=== PATIENT | female | born 1945 | race Caucasian/White ===

== ENCOUNTER 2020-07-01 06:57 | Outpatient (NON) | payer MEDICARE, SELFPAY ==
[2020-07-01 17:37] LABS: SARS-CoV-2 RNA PCR Negative
== END 2020-07-01 06:58 ==
PROVIDERS: PCP Emergency Medicine; Visit Provider Emergency Medicine
DX: R50.9 Fever, unspecified (principal); Z20.828 Contact with and (suspected) exposure to other viral communicable diseases
CPT/HCPCS: 87635; C9803; U0003

== ENCOUNTER 2020-10-11 15:38 | Outpatient (CLI) | payer MEDICARE, SELFPAY ==
--- NOTE | ~2020-10-11 | US_ITS ---
EXAMINATION: US venous doppler LE DATE: 10/11/2020 16:07 INDICATION: Right lower limb pain TECHNIQUE: Grayscale ultrasound images without and with compression and Doppler ultrasound images of the right lower extremity veins were obtained. COMPARISON: None. FINDINGS: The visualized portions of right common femoral vein, profunda (deep) femoral vein, femoral vein, pop liteal vein, peroneal trunk, posterior tibial veins, peroneal veins, gastrocnemius vein and greater s aphenous vein outflow are patent. IMPRESSION: 1. No deep venous thrombosis in the right lower limb. Reviewed, dictated and finalized at location B. 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
== END 2020-10-11 15:39 | disposition home or self-care (01) ==
LOC: ANHIMG 15:46
PROVIDERS: Family Provider Emergency Medicine; PCP Emergency Medicine; Visit Provider Emergency Medicine
DX: M79.604 Pain in right leg (principal)
CPT/HCPCS: 93971

== ENCOUNTER 2020-12-21 08:29 | Emergency (ER) | payer OTHER, MEDICARE, SELFPAY ==
--- NOTE | ~2020-12-21 | XR_ITS ---
EXAMINATION: XR ankle LT min 3V EXAM DATE: 12/21/2020 08:59 INDICATION: Initial encounter following injury, with pain of the left ankle. TECHNIQUE: Left ankle frontal, lateral and oblique projections obtained and reviewed. There is no pr ior study for comparison. FINDINGS: The left ankle mortise appears intact. There are no acute fractures or dislocations ident ified. There is no subcutaneous gas. There is an ankle joint effusion. There is swelling of the api claudia anterolaterally. There are no radiopaque foreign bodies. There is small inferior calcaneal spur . IMPRESSION: 1. Left ankle exam without acute osseous findings. 2. Ankle joint effusion. 3. Soft tissue swelling. Reviewed, dictated and finalized at location A.
[2020-12-21 08:38] VITALS: BP 150/77; PULSE 76; RESP 16; TEMP 36.9; O2SAT 100
--- NOTE | 2020-12-21 08:45 | ED.LOWEXIN ---
HPI - Extremity Injury (Lower) General Chief Complaint: Extremity Injury, Lower Stated Complaint: Left Ankle Injury Time Seen by Provider: 12/21/20 08:37 Source: patient Mode of arrival: ambulatory Limitations: no limitations History of Present Illness HPI Narrative: Patient is a 75-year-old female who presents for evaluation of left ankle pain and injury. 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 Pain was initially sharp but then became throbbing in nature throughout the day. Has had some associated bruising and swelling on the side of the left ankle. Patient does have a history of fracture in this foot several years ago. She denies any surgical intervention for that fracture. Patient denies any fall or head injury. No other extremity injury. She denies knee pain or hip pain. No numbness or tingling. Related Data Home Medications Medication Instructions Recorded Confirmed cholecalciferol (vitamin D3) 1,250 See Rx Instructions .ROUTE .COMPLEX 03/07/20 08/30/20 mcg (50,000 unit) capsule icosapent ethyl 1 gram capsule See Rx Instructions .ROUTE .COMPLEX 03/07/20 08/30/20 simvastatin 10 mg tablet See Rx Instructions .ROUTE .COMPLEX 03/07/20 08/30/20 Allergies Allergy/AdvReac Type Severity Reaction Status Date / Time No Known Allergies Allergy Verified 12/21/20 08:35 Review of Systems Review of Systems: Narrative: CONSTITUTIONAL: Denies fever CARDIOVASCULAR: Denies chest pain RESPIRATORY: Denies cough or dyspnea. GASTROINTESTINAL: Denies abdominal pain SKIN: Denies rash MUSCULOSKELETAL: Denies back pain, reports left ankle pain NEUROLOGIC: Denies headache [facility] Past Medical History Medical History (Updated 12/21/20 @ 09:18 by Sharri Purvis MD) Diabetes mellitus HLD (hyperlipidemia) Hypothyroidism (acquired) Leg pain Other screening mammogram Post-menopausal Right calf pain Vitamin D deficiency disease Family History Family History Sibling Family history of malignant neoplasm of breast in first degree relative Diabetes mellitus Family history of malignant neoplasm of breast Family history of muscular dystrophy Mother Family history of malignant neoplasm, Onset Age: 70 Father Family history of malignant neoplasm of brain Social History Social History Smoking status: Former smoker Smoking end date: 09/15/12 Alcohol intake: current Exam Narrative: Exam Narrative: GENERAL: Awake, alert, conversant HEAD: Normocephalic, atraumatic. EYES: PERRLA and EOMI. ENT: Nares clear, no rhinorrhea or epistaxis. Mucous membranes moist. NECK: Supple. CHEST: No respiratory distress, breathing even and non labored HEART: Regular rate, sinus rhythm ABDOMEN:Non distended, non tender EXTREMITIES: Normal range of motion. Mild edema and ecchymosis to the lateral aspect of the left ankle with tenderness to palpation over the lateral malleolus. No medial malleolus tenderness. DP pulse 2+. Posterior tibialis pulse 2+. Intact distal sensation. Full flexion extension that is somewhat limited due to pain. SKIN: Warm, dry, no rash. NEURO:No focal deficits. Alert and oriented x3 Course Vital Signs Vital signs: Vital Signs Temperature 36.9 C 12/21/20 08:38 Pulse Rate 76 12/21/20 08:38 Respiratory Rate 16 12/21/20 08:38 Blood Pressure 150/77 H 12/21/20 08:38 Pulse Oximetry 100 12/21/20 08:38 Temperature 36.9 C 12/21/20 08:38 Pulse Rate 76 12/21/20 08:38 Respiratory Rate 16 12/21/20 08:38 Blood Pressure 150/77 H 12/21/20 08:38 Pulse Oximetry 100 12/21/20 08:38 MDM - Extremity Injury (Lower) MDM Narrative Medical decision making narrative: Patient is a 75-year-old female who presented for evaluation of left ankle pain after she twisted and fe
--- NOTE | 2020-12-21 09:29 | PC.NURSE ---
pt did not want crutches. aware
[2020-12-21 09:30] VITALS: BP 143/75; PULSE 70; RESP 16; O2SAT 100
== END 2020-12-21 09:34 | disposition home or self-care (01) ==
PROVIDERS: Emergency Provider Emergency Medicine; PCP Emergency Medicine
DX: S93.402A Sprain of unspecified ligament of left ankle, initial encounter (principal); S96.912A Strain of unspecified muscle and tendon at ankle and foot level, left foot, initial encounter; E11.9 Type 2 diabetes mellitus without complications; E78.5 Hyperlipidemia, unspecified; E03.9 Hypothyroidism, unspecified; E55.9 Vitamin D deficiency, unspecified; Z79.84 Long term (current) use of oral hypoglycemic drugs; Z87.891 Personal history of nicotine dependence; X50.9XXA Other and unspecified overexertion or strenuous movements or postures, initial encounter
CPT/HCPCS: 73610; 99283

== ENCOUNTER 2021-08-13 13:46 | Outpatient (CLI) | payer MEDICARE, SELFPAY ==
--- NOTE | ~2021-08-13 | XR_ITS ---
EXAMINATION: XR hip LT min 2V DATE: 08/13/2021 14:09 INDICATION: Left hip pain. TECHNIQUE: 2 views of left hip were obtained. COMPARISON: None. FINDINGS: Bone alignment is normal. No fracture. There is mild left hip osteoarthritis. There are olesya gical clips overlying the pelvis. IMPRESSION: 1. Mild left hip osteoarthritis. Reviewed, dictated and finalized at location A. 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
== END 2021-08-13 13:47 | disposition home or self-care (01) ==
LOC: ANHIMG 13:48
PROVIDERS: PCP Emergency Medicine; Visit Provider Emergency Medicine
DX: M16.12 Unilateral primary osteoarthritis, left hip (principal)
CPT/HCPCS: 73502

== ENCOUNTER 2021-12-22 17:16 | Observation (INO) | payer MEDICARE, SELFPAY ==
[2021-12-22] VITALS (17 sets, daily range): BP systolic 128–151; BP diastolic 68–77; PULSE 71–99; RESP 12–27; TEMP 36.3–36.4; O2SAT 96–98; BMI 25.9
--- NOTE | ~2021-12-22 | NM_ITS ---
EXAMINATION: NM my stress w perfusion DATE: 12/24/2021 11:48 INDICATION: Chest pain. TECHNIQUE: Rest images were obtained following intravenous administration of 10.6 mCi Tc99m tetrofosm in (Myoview). The patient was infused intravenously with Lexiscan (regadenoson). Then, 30.0 mCi Tc99m tetrofosmin (Myoview) was administered intravenously, and supine and prone stress images were obtain ed. Data was reconstructed into short axis and horizontal and vertical long axis SPECT images. Gated SPECT images were also obtained. COMPARISON: Chest CT 12/22/2021 FINDINGS: There is no definite reversible or fixed perfusion abnormality to suggest ischemia or infar ction. There is no segmental wall motion abnormality. Left ventricular ejection fraction measures 6 7%. IMPRESSION: 1. No definite ischemia or infarct. 2. Normal left ventricular ejection fraction measuring 67%. Reviewed, dictated and finalized at location A.
--- NOTE | ~2021-12-22 | XR_ITS ---
EXAMINATION: XR chest 1V portable Exam Date/Time: 12/22/2021 17:35 CDT CLINICAL HISTORY: COUGH, WEAK, CHEST PRESSURE, DIABETIC, HX RT BREAST CANCER Comparison: 05/03/2018. RESULT: Lines, tubes, and devices: None. Lungs and pleura: Clear. Cardiomediastinal silhouette: Stable cardiomediastinal silhouette. Other: No acute osseous or upper abdominal finding. IMPRESSION: No acute cardiopulmonary process. Reviewed, dictated and finalized at location K.
--- NOTE | ~2021-12-22 | CT_ITS ---
EXAMINATION: CTA chest PE protocol DATE: 12/22/2021 19:11 INDICATION: dyspnea TECHNIQUE: Computed tomography angiography (CTA) of the chest was performed with 100 mL Omnipaque-350 intravenous contrast timed to evaluate the pulmonary arteries. Coronal maximum intensity projection 3D-reconstructions were created by the technologist. The dose-length product (DLP) was 267.93 mGy-cm. Automated exposure control and iterative reconstruction technique were employed. COMPARISON: X-ray chest, same date. CT thorax 05/26/2014. FINDINGS: Study quality: Adequate. Pulmonary arteries: No pulmonary emboli detected. Thoracic aorta: Mild atherosclerotic calcification. Lung parenchyma and airways: Mosaic attenuation. Granulomatous nodules. Stable mild right anterior lorrie ng fibrosis. Thoracic inlet, axillae and chest wall: Unremarkable. Mediastinum: Coarse right thyroid lobe calcification. Dystrophic calcifications in the left breast. 9 mm AP window node. Calcified right hilar lymph node. Heart and pericardium: Mild cardiomegaly. Coronary artery calcifications: Moderate. Pleura: Unremarkable. Upper abdomen: Granulomatous calcifications in the liver and spleen.. Bones: No acute osseous finding. IMPRESSION: No pulmonary embolus detected. Reviewed, dictated and finalized at location K.
--- NOTE | 2021-12-22 17:30 | ECG_ITS ---
Measurements Intervals Herman Rate: 88 P: 58 MS: 152 QRS: 0 QRSD: 89 T: 40 QT: 335 QTc: 405 Interpretive Statements SINUS RHYTHM NO PREVIOUS ECG AVAILABLE FOR COMPARISON Electronically Signed On 12-23-2021 6:55:16 CDT by Zhanna Valencia M.D.
--- NOTE | 2021-12-22 17:35 | ED.SOB ---
HPI - SOB/Dyspnea General Chief Complaint: Shortness of Breath/Dyspnea Stated Complaint: diff breathing Time Seen by Provider: 12/22/21 17:16 Source: RN notes reviewed History of Present Illness HPI Narrative: Patient presents emergency room from home for shortness of breath and chest tightness. Patient states that over the past week she has been feeling more fatigued she states whenever she does any activity she gets a tightness in her chest that is worse with activity and then resolves when she rests she states that with that she also feels short of breath she feels like she almost needs to get something up out of her chest with a tightness but is unable to do so states she has had a cough that has been productive of some clear sputum she denies any fevers or chills abdominal pain nausea vomiting she does states she has had some intermittent diarrhea patient was at work this evening and was working when she got the chest tightness went to her boss recommended she come to the ER she states the chest tightness has resolved at this time. 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[place] as well as at [employer] Medications Medication Instructions Recorded Confirmed cholecalciferol (vitamin D3) 1,250 See Rx Instructions .ROUTE .COMPLEX 03/07/20 08/29/21 mcg (50,000 unit) capsule Allergies Allergy/AdvReac Type Severity Reaction Status Date / Time No Known Allergies Allergy Verified 12/22/21 17:50 Review of Systems Review of Systems: Gen.: Denies fevers or chills Eyes: Denies eye pain or visual change ENT: Denies congestion Respiratory: See HPI CV: Denies chest pain or palpitations GI: Denies abdominal pain nausea, emesis reports diarrhea denies burning, urgency, frequency or hematuria Musculoskeletal: Denies back pain or muscle pain Neuro: Denies numbness, tingling, ports weakness Skin: Denies rash Except as documented, all other systems reviewed and negative [facility] Past Medical History Medical History Diabetes mellitus HLD (hyperlipidemia) Hypothyroidism (acquired) Leg pain Other screening mammogram Post-menopausal Right calf pain Vitamin D deficiency disease Family History Family History Sibling Family history of malignant neoplasm of breast in first degree relative Diabetes mellitus Family history of malignant neoplasm of breast Family history of muscular dystrophy Mother Family history of malignant neoplasm, Onset Age: 70 Father Family history of malignant neoplasm of brain Social History Social History Social History: Patient drinks 2 cups of caffeine daily. She exercises a couple of times per week. 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 CARDIOVASCULAR: Regular rate and rhythm without murmurs rubs or gallops. ABDOMINAL: Soft, nontender, nondistended, no rebound or guarding MUSCULOSKELETAl: Moves all extremities. No clubbing, cyanosis or edema. NEURO: Awake and alert. Following commands, speech normal, no focal deficits SKIN:: Warm, dry. No rashes lesions or abrasions PSYCHIATRIC: Normal affect/mood, Course Course Emergency Course: D
[2021-12-22 17:44] LABS: Basophils Absolute Auto 0.1 K/mm3 (0.0-0.1); Basophils Percent Auto 0.8 % (0.2-1.2); Eosinophils Absolute Auto 0.3 K/mm3 (0-0.3); Eosinophils Percent Auto 3.8 % (0-4.4); Hemoglobin 13.8 g/dL (12.0-15.0); Immature Granulocyte Absolute 0.03 K/mm3 (0.00-0.031); Immature Granulocyte Percent A 0.5 % (0-0.5); Lymphocytes Absolute Auto 1.74 K/mm3 (0.9-3.2); Lymphocytes Percent Auto 26.4 % (18.3-44.2); Mean Corpuscular HGB Conc 32.1 g/dl (32-36); Mean Corpuscular Hemoglobin 29.1 pg (26-34); Mean Corpuscular Volume 90.7 fl (80-100); Mean Platelet Volume 9.5 fl (7.4-10.4); Monocytes Absolute Auto 0.7 K/mm3 (0.1-0.6); Monocytes Percent Auto 11.1 % (2.6-8.5); Neutrophils Absolute Auto 3.8 K/mm3 (1.3-6.7); Neutrophils Percent Auto 57.4 % (45.5-73.1); Platelet Count Result 396 k/mm3 (150-375); Red Blood Count 4.74 M/mm3 (4.2-5.4); Red Cell Distribution Width 12.2 % (11.5-14.5); White Blood Count 6.6 K/mm3 (4.5-10.0)
[2021-12-22 17:55] LABS: Prothrombin Time 13.1 Seconds (11.1-14.7)
[2021-12-22 17:58] LABS: Alanine Aminotransferase 16 U/L (4-35); Albumin Level 4.5 g/dL (3.5-5.1); Alkaline Phosphatase 125 U/L (38-126); Anion Gap 9 mmol/L (8-16); Aspartate Amino Transferase 27 U/L (14-36); Bilirubin,Total 0.5 mg/dL (0.2-1.3); Blood Urea Nitrogen 17 mg/dL (7-17); Calcium 10.9 mg/dL (8.4-10.2); Carbon Dioxide 27 mmol/L (22-30); Chloride 103 mmol/L (98-107); Estimated CRCL calculation 46 ml/min; Estimated Glomerular Filt Rate > 60; Glucose 110 mg/dL (65-110); Potassium 3.9 mmol/L (3.4-5.0); Sodium 139 mmol/L (137-145)
[2021-12-22 18:10] LABS: NT Pro B Type Natriuretic Pept 90 pg/mL (5-100); Troponin I < 0.012 ng/mL (0.000-0.034)
[2021-12-22 18:20] LABS: Influenza A QL RT-PCR Negative (Negative); Influenza B QL RT-PCR Negative (Negative); SARS-CoV-2 RNA PCR Negative
[2021-12-22 18:21] LABS: Add Urine Microscopic? YES; Appearance Urine Clear (Clear); Bilirubin Urine Negative (Negative); Blood Urine Negative (Negative); Color Urine Straw (Yellow); Glucose Urine UA Negative (Negative); Hyaline Casts Urine 30-49 /lpf; Ketones Urine Negative (Negative); Leukocyte Esterase Ur 1+ LEU/UL (Negative); Nitrate Urine Negative (Negative); Protein Urine Negative (Negative); RBC Urine 0-2 /hpf (0-2); Specific Grav Ur 1.009 (1.001-1.035); Squamous Epithelial Cell Urine Occasional /hpf (Few); Urobilinogen Urine Negative mg/dL (<2.0); WBC Urine 0-3 /hpf
[2021-12-22 21:02] LABS: Troponin I 0.013 ng/mL (0.000-0.034)
[2021-12-22] MEDS: ASPIRIN 81 MG CHEWABLE TABLET 324 MG PO (21:36)
--- NOTE | 2021-12-22 22:20 | PM.IMHP ---
H&P: HPI History of Present Illness Date/Time: 12/22/21 22:20 Chief Complaint: Cough, shortness of breath, chest tightness. Narrative: 76-year-old female with past medical history of type 2 diabetes, hyperlipidemia, hypothyroidism and right breast cancer status post radiation treatment who presented to the ER with chest tightness, cough and shortness of breath. The patient reported that she started to feel extremely fatigued back in October. This is when she picked up her 2nd job. She is sometimes working [id number] jobs on the same day starting her day at 4:00 a.m. and not getting home until 10:00 p.m.. She became so fatigued that she has been having trouble staying awake while driving. She does occasionally wake herself up snoring. However she reports that for the last week or so she has been having increasing fatigue. It is been associated with subjective fevers, feeling flushed and sweaty. These episodes are accompanying a dry cough. She has also been having a couple of weeks of nasal congestion and what sounds like postnasal drip. She reports that she has does have some chest pain but it seems to be after she is having her dry coughing episodes and she reports that it is midsternal in nature. She reports that the tightness feels as if she cannot get a deep breath. She denies any known ill contacts. Her influenza and COVID PCRs were negative in the ER. She reports that she had a stress test several years ago that was negative. She does not have a known history of coronary artery disease. She has had prior episodes of bronchitis but has been several years ago. 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 And old granulomatous disease. Review of Systems Review of Systems: 12 systems were reviewed with pertinent positives and negatives per HPI. Except as documented in the HPI, all other systems were reviewed and are negative. [facility] Past Medical History Medical History (Updated 12/23/21 @ 00:40 by Dejah Ponce DO) Cancer of right breast (~2003) Diabetes mellitus (~2014) A1c 6% 06/2021 Hepatic steatosis Hypothyroidism (acquired) Macular degeneration Mixed hyperlipidemia due to type 2 diabetes mellitus Other screening mammogram Post-menopausal Vitamin D deficiency disease Surgical History Surgical History (Updated 12/23/21 @ 00:22 by Dejah Ponce DO) History of colonoscopy with polypectomy (07/2016) With 3 polyps resected History of left inguinal hernia repair (01/2019) Due to incarceration History of reconstruction of right breast History of right mastectomy (~2003) History of tonsillectomy and adenoidectomy History of tubal ligation Status post cataract extraction of both eyes with insertion of intraocular lens Family History Family History Sibling Diabetes mellitus Colon cancer Brain aneurysm Breast cancer Muscular dystrophy Mother Ovarian cancer Diabetes mellitus Father Brain cancer Social History Social History (Updated 12/23/21 @ 00:25 by Dejah Ponce DO) Social History: Patient drinks 2 cups of caffeine daily. She exercises a couple of times per week. Smoking status: Former smoker Tobacco type: cigarettes Second hand tobacco smoke exposure: Yes Additional smoking assessment comments: She smoked 1 pack per week until her youngest son was born. Alcohol intake: current Drinks per week: 1 Substance use: never Substance use type: does not use Additional living arrangements comments: She has been since 2019. She lives alone. 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 Gender identity (if verbalized by the patient): Female Sexual Orientation (if Verbalized by the Patient): Straight or Heterosexual Spiritual care lucia
--- NOTE | 2021-12-22 23:32 | ADMIMU ---
This patient, Obdulia Phillips, was admitted to IMU status, and placed in IMU Room 206-01 at 2230. Patient/family oriented to hospital policies and general routines including ID bracelet, bed and alarms, visiting hours, pain management, procedures, bathroom and other care routines, personal items, smoking policy, room service/diet, and visiting hours. Information on how to activate the Rapid Response Team has been discussed. Patient/Family are encouraged to report perceived risks to care and to ask questions if they do not understand what they are told or what they should do.
[2021-12-22] MEDS: SIMVASTATIN 10 MG TABLET PO (23:34)
[2021-12-23] VITALS (26 sets, daily range): BP systolic 121–136; BP diastolic 56–104; PULSE 61–91; RESP 14–20; TEMP 36.3–36.8; O2SAT 94–100
[2021-12-23 00:07] LABS: Troponin I < 0.012 ng/mL (0.000-0.034)
[2021-12-23] MEDS: ALBUTEROL SULFATE NEB 2.5 MG/0.5 ML INH INHALATION ×4 (00:30→20:53)
[2021-12-23] MEDS: IPRATROPIUM BR 0.02% INH SOLN 0.5 MG/2.5 ML VIAL INHALATION (00:30)
[2021-12-23 04:43] LABS: Basophils Absolute Auto 0.1 K/mm3 (0.0-0.1); Basophils Percent Auto 0.9 % (0.2-1.2); Eosinophils Absolute Auto 0.3 K/mm3 (0-0.3); Hematocrit 38.3 % (37.0-47.0); Hemoglobin 12.4 g/dL (12.0-15.0); Immature Granulocyte Absolute 0.02 K/mm3 (0.00-0.031); Immature Granulocyte Percent A 0.4 % (0-0.5); Lymphocytes Absolute Auto 1.62 K/mm3 (0.9-3.2); Lymphocytes Percent Auto 30.3 % (18.3-44.2); Mean Corpuscular HGB Conc 32.4 g/dl (32-36); Mean Corpuscular Hemoglobin 28.8 pg (26-34); Mean Corpuscular Volume 89.1 fl (80-100); Mean Platelet Volume 9.5 fl (7.4-10.4); Monocytes Absolute Auto 0.9 K/mm3 (0.1-0.6); Monocytes Percent Auto 16.3 % (2.6-8.5); Neutrophils Absolute Auto 2.5 K/mm3 (1.3-6.7); Neutrophils Percent Auto 47.1 % (45.5-73.1); Platelet Count Result 351 k/mm3 (150-375); Red Cell Distribution Width 12.4 % (11.5-14.5); White Blood Count 5.4 K/mm3 (4.5-10.0)
[2021-12-23 05:01] LABS: Alanine Aminotransferase 13 U/L (4-35); Albumin Level 3.9 g/dL (3.5-5.1); Alkaline Phosphatase 98 U/L (38-126); Anion Gap 4 mmol/L (8-16); Aspartate Amino Transferase 24 U/L (14-36); Bilirubin,Total 0.6 mg/dL (0.2-1.3); Blood Urea Nitrogen 19 mg/dL (7-17); Carbon Dioxide 29 mmol/L (22-30); Chloride 104 mmol/L (98-107); Estimated CRCL calculation 44 ml/min; Estimated Glomerular Filt Rate > 60; Glucose 111 mg/dL (65-110); Potassium 3.7 mmol/L (3.4-5.0); Sodium 137 mmol/L (137-145)
[2021-12-23] MEDS: LEVOTHYROXINE SODIUM 25 MCG TABLET PO (06:10)
[2021-12-23] MEDS: THERAPEUTIC MULTIVITAMINS/MINERALS TAB (*BKC) 1 TABLET PO (08:40)
[2021-12-23] MEDS: OMEGA 3 POLYUNSAT FATTY ACIDS 1 GM CAP 2 GM PO (08:40)
[2021-12-23] MEDS: ENOXAPARIN 40 MG/0.4 ML SYRINGE SUB-Q (08:41)
[2021-12-23] MEDS: metFORMIN HCL 500 MG TABLET PO ×2 (08:41→18:02)
[2021-12-23] MEDS: FLUTICASONE PROPIONATE 0.05% NA SPR 16 GM BTL (*BKC) 2 SPRAY NASAL (08:41)
--- NOTE | 2021-12-23 11:17 | PM.IMPN ---
Progress Note: A&P Assessment and Plan (1) Chest pain: Qualifiers: Chest pain type: unspecified Qualified Code(s): R07.9 - Chest pain, unspecified Code(s): R07.9 - Chest pain, unspecified Status: Acute (2) Dyspnea: Qualifiers: Dyspnea type: dyspnea on exertion Qualified Code(s): R06.00 - Dyspnea, unspecified Code(s): R06.00 - Dyspnea, unspecified Status: Acute (3) Cough: Code(s): R05.9 - Cough, unspecified Status: Acute (4) Snoring: Code(s): R06.83 - Snoring Status: Acute (5) Fatigue: Qualifiers: Fatigue type: unspecified Qualified Code(s): R53.83 - Other fatigue Code(s): R53.83 - Other fatigue Status: Acute (6) Diabetes mellitus: Onset Date: ~2014 Qualifiers: Diabetes mellitus type: type 2 Diabetes mellitus emt intermediate insulin use: without emt intermediate use Diabetes mellitus complication status: without complication Qualified Code(s): E11.9 - Type 2 diabetes mellitus without complications Code(s): E11.9 - Type 2 diabetes mellitus without complications Status: Acute (7) Post-nasal drainage: Code(s): R09.82 - Postnasal drip Status: Acute (8) GERD (gastroesophageal reflux disease): Code(s): K21.9 - Gastro-esophageal reflux disease without esophagitis Status: Acute Additional Plan The patient has complaints of chest tightness, dyspnea and dry cough. She certainly does have risk factors for coronary artery disease but her serial troponins have been negative. Her chest pain seems somewhat atypical. EKG was unremarkable. Cardiology has been consulted. Appreciate any recommendations to could be provided. Given that the patient has edematous nasal passages, nasal congestion, postnasal drip and CTA of the chest finding suggestive of asthma, bronchiolitis obliterans, hypersensitivity pneumonitis I a.m. more suspicious of respiratory cause for the patient's symptoms. Certainly her symptoms do occur with exertion better usually accompanied by the dry nonproductive cough. Will start the patient on Flonase 2 sprays each naris daily. Will also provide albuterol nebulizer treatments. If these help the patient may benefit from 5 days of a steroid burst. The patient does have fatigue for the last several months but this correlates with her picking up a 2nd job. Patient is very active and busy aches specially given her age. She does have some reports of snoring they will occasionally wake her from sleep. She does have a crowded posterior oropharynx and would benefit from an outpatient sleep study. I would of ordered an ApneaLink with the patient did not arrive to the IMU until around 11:00 p.m. The patient has well-controlled diabetes mellitus. Will continue patient's home metformin. Hypoglycemia protocol has been ordered. 12/23/21 pt w cough likely 2/2 PND h/o GERD not on treatment onset of CP yesterday anticipate dc home in am after cleared by cardiology w ongoing outpt care Subjective Date/time seen: 12/23/21 11:17 pt does report feeling tired she has been working 15hr days since October with both of her jobs. She states that she has had a cough frequent and soft like she has something to clear from her throat ongoing for quite a while now. She does have a history of GERD. She is not a smoker. + PND Yesterday when she developed chest pain she reports she felt diaphoretic but she denies having any fever that she is aware of. fatigue is primary complaint which she attributes to working long hours Exam Narrative: PHYSICAL EXAM: General: No acute distress, well-developed well-nourished, well-groomed HEENT: EOMI, no scleral icterus, no conjunctival pallor normal neck circumference Respiratory: Clear to auscultation bilaterally, no increased work of breathing Gastrointestinal: Soft, nontender, nondistended Skin: No pallor, non jaundice Musculoskeletal: No clubbing, cyan
--- NOTE | 2021-12-23 13:05 | PM.CNCAR ---
Assessment and Plan Additional Plan atypical chest pain, negative enzymes and normal EKG, CTA unremarkble, Plan TTE and stress test in AM History of Present Illness History of Present Illness Consult date/time: 12/23/21 13:05 Consult reason: shortness of breath Reason For Visit: Chest Pain, Dyspnea Narrative: Patient presented with episode of chest discomfort that started few days ago, persistent, in middle of chest, non radiating. she describes it as more of SOB and discomfort rather than pain. symptoms are moderate, worse with moderate activity. No prior similar episodes. Review of Systems Review of Systems: All systems reviewed & are unremarkable except as noted in HPI and below PMFSH Past Medical History Medical History (Updated 12/23/21 @ 11:26 by Rand Kay MD) Cancer of right breast (~2003) Diabetes mellitus (~2014) A1c 6% 06/2021 Hepatic steatosis Hypothyroidism (acquired) Macular degeneration Mixed hyperlipidemia due to type 2 diabetes mellitus Other screening mammogram Post-menopausal Vitamin D deficiency disease Surgical History Surgical History (Updated 12/23/21 @ 00:22 by Dejah Pnoce DO) History of colonoscopy with polypectomy (07/2016) With 3 polyps resected History of left inguinal hernia repair (01/2019) Due to incarceration History of reconstruction of right breast History of right mastectomy (~2003) History of tonsillectomy and adenoidectomy History of tubal ligation Status post cataract extraction of both eyes with insertion of intraocular lens Family History Family History Sibling Diabetes mellitus Colon cancer Brain aneurysm Breast cancer Muscular dystrophy Mother Ovarian cancer Diabetes mellitus Father Brain cancer Social History Social History (Updated 12/23/21 @ 00:25 by Dejah Ponce DO) Social History: Patient drinks 2 cups of caffeine daily. She exercises a couple of times per week. Smoking status: Former smoker Tobacco type: cigarettes Second hand tobacco smoke exposure: Yes Additional smoking assessment comments: She smoked 1 pack per week until her youngest son was born. Alcohol intake: current Drinks per week: 1 Substance use: never Substance use type: does not use Additional living arrangements comments: She has been since 2019. She lives alone. 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 Gender identity (if verbalized by the patient): Female Sexual Orientation (if Verbalized by the Patient): Straight or Heterosexual Spiritual care concerns: No Meds Home Medications and Allergies Home Medications Medication Instructions Recorded Confirmed Type cholecalciferol (vitamin D3) 1,250 1,250 mcg PO WEEKLY 03/07/20 12/22/21 History mcg (50,000 unit) capsule blood sugar diagnostic See Rx Instructions .ROUTE 11/14/20 12/22/21 Rx .COMPLEX #200 strip lancets 30 gauge See Rx Instructions .ROUTE 11/14/20 12/22/21 Rx .COMPLEX #200 ea icosapent ethyl [Vascepa] 2 g PO DAILY 12/22/21 12/22/21 History levothyroxine 25 mcg PO DAILY 12/22/21 12/22/21 History metformin 500 mg PO BID 12/22/21 12/22/21 History multivit with min-folic acid 1 tablet PO DAILY 12/22/21 12/22/21 History [Adult One Daily Multivitamin] simvastatin 10 mg PO HS 12/22/21 12/22/21 History Allergies Allergy/AdvReac Type Severity Reaction Status Date / Time No Known Allergies Allergy Verified 12/22/21 17:50 Vital Signs Vital Signs - 24 hr 12/22/21 17:22 12/22/21 17:25 12/22/21 17:30 Temperature 36.4 C L Pulse Rate 84 84 82 Respiratory Rate 14 15 13 Blood Pressure 146/74 H Pulse Oximetry 97 98 97 12/22/21 17:31 12/22/21 17:41 12/22/21 17:44 Temperature Pulse Rate 84 81 Respiratory Rate 13 Blood Pressure 138/68 Pulse Oximetry 96 98 12/22/21 18:38
[2021-12-23] MEDS: PANTOPRAZOLE SODIUM IV 40 MG VIAL IV PUSH (20:42)
[2021-12-23] MEDS: SIMVASTATIN 10 MG TABLET PO (20:43)
[2021-12-24] VITALS (12 sets, daily range): BP systolic 124–137; BP diastolic 55–63; PULSE 73–85; RESP 16–20; TEMP 36.1–36.6; O2SAT 97–99
--- NOTE | 2021-12-24 | ECHO_ITS ---
Patient Info Name: Obdulia Phillips Age: 76 years : 1945 Gender: Female Ht: 63 in Wt: 157 lbs BSA: 1.80 m2 HR: 77 bpm BP: 131 / 63 mmHg Heart Rhythm: Sinus Rhythm Technical Quality: Fair Exam Date: 12/24/2021 11:50 AM Exam Location: [facility] Patient Status: Outpatient Admit Date: 12/22/2021 Staff Ordering Physician: Ashley Portillo Business Agent: Kat Mccain RDCS Attending Provider: Dejah Ponce DO Referring Physician: Lindsey THOMAS; Exam Type: CA echo doppler color flow Study Info Indications - chest pain, dyspnea Complete two-dimensional, color flow and Doppler transthoracic echocardiogram is performed. Summary 1. Complete two-dimensional, color flow and Doppler transthoracic echocardiogram is performed. 2. Left ventricular chamber dimension is normal. 3. Left ventricular systolic function is normal, estimated at 55-60%. 4. There is mildly increased left ventricular wall thickness. 5. The left ventricular diastolic function is grade I diastolic dysfunction. 6. Left atrial chamber dimension is mildly enlarged. 7. There is mild aortic valve regurgitation. 8. There is mild mitral valve regurgitation. 9. There is mild tricuspid valve regurgitation. 10. There is mild pulmonic regurgitation. Left Ventricle Left ventricular chamber dimension is normal. Left ventricular systolic function is normal, estimated at 55-60%. There is mildly increased left ventricular wall thickness. The left ventricular diastolic function is grade I diastolic dysfunction. Right Ventricle Right ventricular chamber dimension is normal. Right ventricular systolic function is normal. Left Atria Left atrial chamber dimension is mildly enlarged. Right Atria Right atrial chamber dimension is normal. Atrial Septum Intact interatrial septum visualized by color flow imaging. Aortic Valve The aortic valve is trileaflet. There is mild aortic valve sclerosis. There is no aortic valve stenosis. There is mild aortic valve regurgitation. Pulmonic Valve The pulmonic valve is normal. There is no pulmonic valve stenosis. There is mild pulmonic regurgitation. Mitral Valve The mitral valve has thickened leaflets. There is no mitral valve stenosis. There is mild mitral valve regurgitation. Tricuspid Valve The tricuspid valve leaflets are normal. There is no significant tricuspid valve stenosis. There is mild tricuspid valve regurgitation. No pulmonary hypertension, estimated pulmonary arterial systolic pressure is 31 mmHg. Pericardium/Pleural The pericardium appears normal. There is no pericardial effusion. Inferior Vena Cava Normal inferior vena cava with >50% collapse upon inspiration consistent with normal right atrial pressure, 10 mmHg. Aorta The aortic root size at the sinus of Valsalva is normal. The prox ascending aorta size is normal. Left Ventricular Outflow Tract Name Value Normal LVOT 2D LVOT Diameter 2.0 cm LVOT Doppler LVOT Peak Gradient 4 mmHg LVOT Mean Gradient 2 mmHg LVOT VTI
[2021-12-24] MEDS: ALBUTEROL SULFATE NEB 2.5 MG/0.5 ML INH INHALATION ×2 (03:05→08:10)
[2021-12-24 04:48] LABS: Basophils Absolute Auto 0.1 K/mm3 (0.0-0.1); Basophils Percent Auto 0.8 % (0.2-1.2); Eosinophils Absolute Auto 0.2 K/mm3 (0-0.3); Hematocrit 39.8 % (37.0-47.0); Hemoglobin 12.3 g/dL (12.0-15.0); Immature Granulocyte Absolute 0.02 K/mm3 (0.00-0.031); Immature Granulocyte Percent A 0.3 % (0-0.5); Lymphocytes Percent Auto 33.7 % (18.3-44.2); Mean Corpuscular HGB Conc 30.9 g/dl (32-36); Mean Corpuscular Hemoglobin 28.6 pg (26-34); Mean Corpuscular Volume 92.6 fl (80-100); Mean Platelet Volume 9.4 fl (7.4-10.4); Monocytes Absolute Auto 0.7 K/mm3 (0.1-0.6); Neutrophils Absolute Auto 2.9 K/mm3 (1.3-6.7); Neutrophils Percent Auto 49.2 % (45.5-73.1); Platelet Count Result 324 k/mm3 (150-375); Red Cell Distribution Width 12.5 % (11.5-14.5); White Blood Count 5.9 K/mm3 (4.5-10.0)
[2021-12-24 05:06] LABS: Anion Gap 6 mmol/L (8-16); Blood Urea Nitrogen 12 mg/dL (7-17); Carbon Dioxide 27 mmol/L (22-30); Chloride 104 mmol/L (98-107); Estimated CRCL calculation 58 ml/min; Estimated Glomerular Filt Rate > 60; Glucose 126 mg/dL (65-110); Magnesium 2.1 mg/dL (1.6-2.3); Potassium 3.6 mmol/L (3.4-5.0); Sodium 137 mmol/L (137-145)
[2021-12-24] MEDS: LEVOTHYROXINE SODIUM 25 MCG TABLET PO (05:57)
[2021-12-24] MEDS: FLUTICASONE PROPIONATE 0.05% NA SPR 16 GM BTL (*BKC) 2 SPRAY NASAL (09:46)
[2021-12-24] MEDS: ENOXAPARIN 40 MG/0.4 ML SYRINGE SUB-Q (09:47)
[2021-12-24] MEDS: metFORMIN HCL 500 MG TABLET PO (09:47)
[2021-12-24] MEDS: OMEGA 3 POLYUNSAT FATTY ACIDS 1 GM CAP 2 GM PO (09:48)
[2021-12-24] MEDS: THERAPEUTIC MULTIVITAMINS/MINERALS TAB (*BKC) 1 TABLET PO (09:48)
[2021-12-24] MEDS: PANTOPRAZOLE SODIUM IV 40 MG VIAL IV PUSH (09:48)
--- NOTE | 2021-12-24 10:48 | PM.PNCARD ---
Progress Note: A&P Assessment and Plan (1) Chest pain: Qualifiers: Chest pain type: unspecified Qualified Code(s): R07.9 - Chest pain, unspecified Code(s): R07.9 - Chest pain, unspecified Status: Acute Assessment and Plan: Her chest pain sounds atypical. She also had negative serial cardiac enzymes and unremarkable EKG. She is no longer having chest tightness after receiving nebulizers for poss. asthma, pneumonitis. She did undergo a lexiscan stress test this morning. Will leave further recommendations following review of those results. Check echo. Subjective Date/time seen: 12/24/21 10:48 Cardiology follow up for chest pain Patient is feeling well this morning has no complaints. She is denying any chest pain or shortness of breath. Review of Systems Review of Systems: All systems reviewed & are unremarkable except as noted in HPI and below Exam Const: General: comfortable and no acute distress Other: Able to lie flat HENMT: General nose exam: Normal nares present and no epistaxis Mouth: Yes moist mucous membranes Eyes: Sclera: sclerae normal Pupils: Equal, round and reactive pupils present Neck: Neck: supple and no JVD Carotids: no bruits Resp: Auscultation: clear to auscultation bilaterally and lung sounds not diminished Other: No chest wall tenderness Cardio: Rate: regular rate Rhythm: regular rhythm Heart sounds: no gallops, no murmurs and no rubs GI: Auscultation: normal bowel sounds Skin: General skin exam: normal color, rashes and/or lesions noted and no erythema Other: Warm Neuro: Cranial nerves: Yes Equal, round and reactive pupils present Speech: normal speech Other: No obvious focal deficit or facial asymmetry Extrem: General: no edema Other: Normal capillary refills Intact distal pulses. Objective Data Vital Signs Vital Signs: Vital Signs - 24 hr 12/23/21 11:11 12/23/21 12:00 12/23/21 14:00 Temperature 36.8 C Pulse Rate 81 68 81 Respiratory Rate 16 Blood Pressure 124/68 Pulse Oximetry 100 12/23/21 14:40 12/23/21 14:49 12/23/21 16:00 Temperature 36.3 C L Pulse Rate 70 72 91 Respiratory Rate 18 18 14 Blood Pressure 121/104 H Pulse Oximetry 99 12/23/21 18:00 12/23/21 19:54 12/23/21 20:00 Temperature 36.3 C L Pulse Rate 85 88 84 Respiratory Rate 18 17 Blood Pressure 126/59 L Pulse Oximetry 100 97 12/23/21 20:53 12/23/21 20:56 12/23/21 21:02 Temperature Pulse Rate 87 81 89 Respiratory Rate 17 17 18 Blood Pressure Pulse Oximetry 97 12/23/21 21:58 12/23/21 23:41 12/24/21 00:00 Temperature 36.6 C Pulse Rate 82 73 77 Respiratory Rate 20 20 Blood Pressure 129/56 L Pulse Oximetry 97 97 12/24/21 02:00 12/24/21 03:04 12/24/21 03:12 Temperature Pulse Rate 78 78 83 Respiratory Rate 16 17 Blood Pressure Pulse Oximetry 12/24/21 04:00 12/24/21 05:37 12/24/21 08:00 Temperature 36.6 C 36.1 C L Pulse Rate 81 78 76 Respiratory Rate 18 16 Blood Pressure 124/55 L 131/63 Pulse Oximetry 97 99 12/24/21 08:10 12/24/21 08:12 12/24/21 08:17 Temperature Pulse Rate 76 76 77 Respiratory Rate 18 18 18 Blood Pressure Pulse Oximetry 97 Intake/Output Intake/Output: Intake & Output 12/21/21 12/22/21 12/23/21 12/24/21 23:59 23:59 23:59 23:59 Intake Total 1100 200 Output Total 922 600 700 Balance -922 500 -500 Meds/Results Medications: Active Medications Generic Name Dose Route Start Last Admin Trade Name Freq PRN Reason Stop Dose Admin Albuterol 2.5 mg 12/23/21 08:00 12/24/21 08:10 Albuterol Sulfate Neb 2.5 Mg/0.5 Ml Inh INHALATION 2.5 mg Q6HRT CARTER Administration Dextrose 12.5 gm 12/22/21 22:53 Dextrose 50% 25 Gm/50 Ml Syringe IV PUSH PRN PRN Hypoglycemia Protocol Enoxaparin Sodium 40 mg 12/23/21 09:00 12/24/21 09:47 Enoxaparin 40 Mg/0.4 Ml Syringe SUB-Q 40 mg DAILY CARTER Administration Fish Oil
--- NOTE | 2021-12-24 12:21 | PM.DS ---
DS: Admitting Diagnosis Discharge Date 12/24/2021 Admitting Diagnosis (1) Chest pain: Qualifiers: Chest pain type: unspecified Qualified Code(s): R07.9 - Chest pain, unspecified Code(s): R07.9 - Chest pain, unspecified Status: Acute (2) Dyspnea: Qualifiers: Dyspnea type: dyspnea on exertion Qualified Code(s): R06.00 - Dyspnea, unspecified Code(s): R06.00 - Dyspnea, unspecified Status: Acute (3) Cough: Code(s): R05.9 - Cough, unspecified Status: Acute (4) Snoring: Code(s): R06.83 - Snoring Status: Acute (5) Fatigue: Qualifiers: Fatigue type: unspecified Qualified Code(s): R53.83 - Other fatigue Code(s): R53.83 - Other fatigue Status: Acute (6) Diabetes mellitus: Onset Date: Qualifiers: Diabetes mellitus type: type 2 Diabetes mellitus intermediate accountant insulin use: without intermediate accountant use Diabetes mellitus complication status: without complication Qualified Code(s): E11.9 - Type 2 diabetes mellitus without complications Code(s): E11.9 - Type 2 diabetes mellitus without complications Status: Acute DS: Discharge Diagnosis Discharge Diagnosis (1) GERD (gastroesophageal reflux disease): Code(s): K21.9 - Gastro-esophageal reflux disease without esophagitis Status: Acute (2) Post-nasal drainage: Code(s): R09.82 - Postnasal drip Status: Acute (3) Snoring: Code(s): R06.83 - Snoring Status: Acute (4) Chest pain: Qualifiers: Chest pain type: unspecified Qualified Code(s): R07.9 - Chest pain, unspecified Code(s): R07.9 - Chest pain, unspecified Status: Acute (5) Dyspnea: Qualifiers: Dyspnea type: dyspnea on exertion Qualified Code(s): R06.00 - Dyspnea, unspecified Code(s): R06.00 - Dyspnea, unspecified Status: Acute (6) Cough: Code(s): R05.9 - Cough, unspecified Status: Acute (7) Hypothyroidism (acquired): Code(s): E03.9 - Hypothyroidism, unspecified Status: Acute (8) Diabetes mellitus: Onset Date: ~2015 Qualifiers: Diabetes mellitus type: type 2 Diabetes mellitus intermediate accountant insulin use: without shelter use Diabetes mellitus complication status: without complication Qualified Code(s): E11.9 - Type 2 diabetes mellitus without complications Code(s): E11.9 - Type 2 diabetes mellitus without complications Status: Acute (9) HLD (hyperlipidemia): Qualifiers: Hyperlipidemia type: mixed hyperlipidemia Qualified Code(s): E78.2 - Mixed hyperlipidemia Code(s): E78.5 - Hyperlipidemia, unspecified Status: Acute DS: Summary Hospital Course Reason for hospitalization: chest pain Hospital Course: 76-year-old female admitted to hospital with chest pain cough. Chest pain was considered to be atypical and pt ruled out for ACS. She underwent echocardiogram and stress testing prior to discharge. Her CTA chest was negative for any acute findings and per history patient reports symptoms of reflux and postnasal drip. These are likely to be the cause of chronic cough. Patient is prescribed Mucinex, Flonase, pantoprazole, Carafate, and discharged home in stable condition with indications to follow up with her primary care physician. Return to work note given, without restriction, starting tomorrow 12/25/2021 Status at Discharge Functional status at discharge: independent ambulation Overall status at discharge: patient is back to baseline Time Spent with Patient Time attestation: Total time spent providing and/or coordinating discharge services: Time spent: Less than 30 minutes Exam Narrative: General: No acute distress, well-developed well-nourished, well-groomed HEENT: EOMI, no scleral icterus, no conjunctival pallor normal neck circumference Respiratory: Clear to auscultation bilaterally, no increased work of breathing [place]
--- NOTE | 2021-12-24 13:18 | EST_ITS ---
Patient Info Name: Obdulia Phillips Age: 76 years : 1945 Gender: Female Ht: 63 in Wt: 146 lbs BSA: 1.73 m2 HR: 77 bpm BP: 125 / 72 mmHg Heart Rhythm: Sinus Rhythm Exam Date: 12/24/2021 10:29 AM Exam Location: [facility] Patient Status: Outpatient Admit Date: 12/22/2021 Staff Ordering Physician: Rommel Todd MD Attending Provider: Dejah Ponce DO Exercise Technologist: Zahraa Gtz, CT Nurse: PHILOMENA HANSEN Exam Type: CA stress my w NM Study Info Indications R07.9 - Chest pain, unspecified A regadenoson stress test was performed. Summary 1. No abnormal ST-T wave changes with lexiscan. 2. Please correlate with nuclear medicine images, reported separately. Protocol: Lexiscan Stress ECG Details Stage: REST Duration (min): 0 min : 51 sec HR (bpm): 82 SBP (mmHg): 125 DBP (mmHg): 72 Stage: REST Duration (min): 6 min : 41 sec HR (bpm): 79 SBP (mmHg): 125 DBP (mmHg): 72 Stage: STAGE 1 Duration (min): 1 min : 0 sec HR (bpm): 87 SBP (mmHg): 122 DBP (mmHg): 61 Stage: RECOVERY Duration (min): 1 min : 0 sec HR (bpm): 103 SBP (mmHg): 122 DBP (mmHg): 61 Stage: RECOVERY Duration (min): 2 min : 0 sec HR (bpm): 105 SBP (mmHg): 122 DBP (mmHg): 61 Stage: RECOVERY Duration (min): 3 min : 0 sec HR (bpm): 94 SBP (mmHg): 134 DBP (mmHg): 63 Stage: RECOVERY Duration (min): 4 min : 0 sec HR (bpm): 96 SBP (mmHg): 134 DBP (mmHg): 63 Stage: RECOVERY Duration (min): 4 min : 43 sec HR (bpm): 93 SBP (mmHg): 129 DBP (mmHg): 64 Rest HR: 79 bpm Peak HR: 109 bpm Rest Sys BP: 125 mmHg Peak Sys BP: 134 mmHg Max Pred HR: 146 bpm % Max Pred HR: 75 % Target HR: 124 bpm Max RPP: 14,606 bpm*mmHg BP Response: Normal blood pressure response Termination Reason: Completed protocol Cardiac Symptoms: None Total Time: 1 min : 0 sec Rest Schaefer BP: 72 mmHg Peak Schaefer BP: 63 mmHg Total Dose: 0.4 mg Resting ECG Normal sinus rhythm - normal ECG. Stress ECG No abnormal ST/T wave changes with exercise. Arrhythmias None. Report Signatures
== END 2021-12-24 14:50 | disposition home or self-care (01) ==
LOC: ANHED 21:42 → ANHIMU 22:11
PROVIDERS: Admitting Provider Internal Medicine; Emergency Provider Emergency Medicine; PCP Emergency Medicine; Visit Provider Hospitalist
DX: K21.9 Gastro-esophageal reflux disease without esophagitis (principal); R05.9 Cough, unspecified; R07.9 Chest pain, unspecified; R06.00 Dyspnea, unspecified; R53.83 Other fatigue; R06.83 Snoring; R09.82 Postnasal drip; E11.9 Type 2 diabetes mellitus without complications; E78.2 Mixed hyperlipidemia; H35.30 Unspecified macular degeneration; E03.9 Hypothyroidism, unspecified; E55.9 Vitamin D deficiency, unspecified; Z87.891 Personal history of nicotine dependence; Z79.84 Long term (current) use of oral hypoglycemic drugs; Z85.3 Personal history of malignant neoplasm of breast; Z20.822 Contact with and (suspected) exposure to COVID-19
CPT/HCPCS: 36415; 71045; 71275; 78452; 80048; 80053; 81001; 83735; 83880; 84484; 85025; 85610; 85730; 87502; 93005; 93017; 93306; 94640; 96372; 96374; 96376; 99285; A9270; A9502; C9113; C9803; G0378; J1650; J2785; Q9967; U0003; U0005

== ENCOUNTER 2022-02-25 19:56 | Emergency (ER) | payer MEDICARE, SELFPAY ==
[2022-02-25 20:18] VITALS: BP 132/59; PULSE 98; RESP 16; TEMP 36.7; O2SAT 98
--- NOTE | 2022-02-25 20:56 | ED.WOUNDLAC ---
HPI - Wound/Laceration General Chief Complaint: Wound/Laceration Stated Complaint: right pinkie finger wound x 1 week Time Seen by Provider: 02/25/22 20:44 History of Present Illness HPI narrative: Pt states she had a small sore on her right 5th finger that she scratches and it later formed a blister which popped and now it is red and has some rednes going up finger. Pt denies fever or chills. Related Data Home Medications Medication Instructions Recorded Confirmed cholecalciferol (vitamin D3) 1,250 1,250 mcg PO WEEKLY 03/07/20 12/22/21 mcg (50,000 unit) capsule icosapent ethyl 1 gram capsule 2 g PO DAILY 12/22/21 12/22/21 (Vascepa) levothyroxine 25 mcg tablet 25 mcg PO DAILY 12/22/21 12/22/21 metformin 500 mg tablet 500 mg PO BID 12/22/21 12/22/21 multivitamin with minerals-folic 1 tablet PO DAILY 12/22/21 12/22/21 acid 0.4 mg tablet simvastatin 10 mg tablet 10 mg PO HS 12/22/21 12/22/21 Allergies Allergy/AdvReac Type Severity Reaction Status Date / Time No Known Allergies Allergy Verified 02/25/22 20:19 Review of Systems Review of Systems: All systems reviewed & are unremarkable except as noted in HPI and below PMFSH Past Medical History Medical History (Updated 02/25/22 @ 21:03 by Annabella Jacobs III, DO) Cancer of right breast (~2003) Diabetes mellitus (~2014) A1c 6% 06/2021 Hepatic steatosis Hypothyroidism (acquired) Macular degeneration Mixed hyperlipidemia due to type 2 diabetes mellitus Other screening mammogram Post-menopausal Vitamin D deficiency disease Surgical History Surgical History (Updated 12/23/21 @ 00:22 by Dejah Ponce DO) History of colonoscopy with polypectomy (07/2016) With 3 polyps resected History of left inguinal hernia repair (01/2019) Due to incarceration History of reconstruction of right breast History of right mastectomy (~2003) History of tonsillectomy and adenoidectomy History of tubal ligation Status post cataract extraction of both eyes with insertion of intraocular lens Family History Family History Sibling Diabetes mellitus Colon cancer Brain aneurysm Breast cancer Muscular dystrophy Mother Ovarian cancer Diabetes mellitus Father Brain cancer Social History Social History (Updated 12/23/21 @ 00:25 by Dejah Ponce DO) Social History: Patient drinks 2 cups of caffeine daily. She exercises a couple of times per week. Smoking status: Former smoker Tobacco type: cigarettes Second hand tobacco smoke exposure: Yes Additional smoking assessment comments: She smoked 1 pack per week until her youngest son was born. Alcohol intake: current Drinks per week: 1 Substance use: never Substance use type: does not use Additional living arrangements comments: She has been since 2019. She lives alone. 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 Gender identity (if verbalized by the patient): Female Sexual Orientation (if Verbalized by the Patient): Straight or Heterosexual Spiritual care concerns: No Exam Const: General: healthy appearing Nutritional Appearance: well nourished Orientation/consciousness: patient oriented x3 Limitations: no limitations Eyes: Conjunctivae: conjunctivae normal EOM: EOMs intact bilaterally Neck: Neck: normal visual inspection and no meningeal signs Resp: Effort & Inspection: normal respiratory effort Auscultation: clear to auscultation bilaterally Cardio: Rate: regular rate Rhythm: regular rhythm GI: GI Palp: Yes Soft to palpation Skin: Wounds: wounds noted Other: small ulcer dorsum of right 5th finger at dip joint with surrounding erythema Neuro: General: patient oriented x3 Cranial nerves: Yes Nystagmus not present Speech: normal speech Extrem: General: normal to inspection Psych: Mental Status: mental status gross
[2022-02-25 21:37] VITALS: BP 136/66; PULSE 98; RESP 16; O2SAT 97
== END 2022-02-25 21:30 | disposition home or self-care (01) ==
LOC: ANHED 21:11
PROVIDERS: Emergency Provider Emergency Medicine; PCP Emergency Medicine
DX: L03.011 Cellulitis of right finger (principal); E11.9 Type 2 diabetes mellitus without complications; E03.9 Hypothyroidism, unspecified; E78.2 Mixed hyperlipidemia; Z87.891 Personal history of nicotine dependence
CPT/HCPCS: 99283

== ENCOUNTER 2022-07-24 11:39 | Outpatient (CLI) | payer MEDICARE, SELFPAY ==
[2022-07-24 12:42] LABS: SARS-CoV-2 RNA PCR Negative
== END 2022-07-24 11:40 | disposition home or self-care (01) ==
PROVIDERS: PCP Emergency Medicine; Visit Provider Emergency Medicine
DX: U07.1 COVID-19 (principal)
CPT/HCPCS: U0003; U0005

== ENCOUNTER 2023-05-06 15:19 | Outpatient (CLI) | payer MEDICARE, SELFPAY ==
--- NOTE | ~2023-05-06 | MR_ITS ---
EXAMINATION: MR shoulder LT wo con DATE: 05/06/2023 16:17 INDICATION: Left shoulder pain. TECHNIQUE: Magnetic resonance imaging (MRI) of the left shoulder was performed without intravenous co ntrast. Sequences included axial PD-weighted FS FSE, coronal oblique PD-weighted FS FSE and T2-weight ed FS FSE, and sagittal oblique T2-weighted FS FSE and T1-weighted FSE. COMPARISON: Left shoulder radiographs 04/24/2023 FINDINGS: Coracoacromial arch: The acromion undersurface is curved in morphology (type II). There is moderate acromioclavicular join t osteoarthritis. There is moderate subacromial/subdeltoid bursitis. Rotator cuff: There is severe supraspinatus tendinopathy and moderate infraspinatus tendinopathy. There is an inter stitial tear of supraspinatus tendon measuring 2 mm anterior to posterior by 4 mm proximal to distal by 40% tendon thickness. Teres minor tendon is normal. There is severe subscapularis tendinopathy. Th ere is no asymmetric fatty atrophy of the rotator cuff muscle bellies. Biceps tendon and glenoid labrum: Biceps tendon is in bicipital groove. There is mild intra-articular biceps tendon. Tendinopathy. Ther e is degeneration of the glenoid labrum without well-defined tear. Fluid: There is no glenohumeral joint effusion. Bones/cartilage: There is cartilage surface irregularity of glenoid and humeral head. There are tiny osteophytes. IMPRESSION: 1. Severe rotator cuff tendinopathy with small interstitial tear of supraspinatus tendon. 2. Moderate subacromial/subdeltoid bursitis. 3. Mild glenohumeral joint chondrosis. 4. Moderate acromioclavicular joint osteoarthritis. 5. Mild intra-articular biceps tendinopathy. Reviewed, dictated and finalized at location A. IMPRESSION: 1. Severe rotator cuff tendinopathy with small interstitial tear of supraspinat us tendon. 2. Moderate subacromial/subdeltoid bursitis. 3. Mild glenohumeral joint chondrosis. 4. Moderate acromioclavicular joint osteoarthritis. 5. Mild intra-articular biceps tendinopathy.
== END 2023-05-06 15:20 ==
LOC: MICIMG 15:20
PROVIDERS: PCP Emergency Medicine; Visit Provider Orthopaedic Surgery
DX: M19.012 Primary osteoarthritis, left shoulder (principal); M75.52 Bursitis of left shoulder
CPT/HCPCS: 73221

== ENCOUNTER 2023-08-29 14:01 | Emergency (ER) | payer MEDICARE, SELFPAY ==
--- NOTE | ~2023-08-29 | CT_ITS ---
EXAMINATION: CT brain wo con DATE: 08/29/2023 15:02 INDICATION: Left facial pain. Weakness. TECHNIQUE: Computed tomography (CT) of the head was performed without intravenous contrast. The mA wa s adjusted according to patient size. Iterative reconstruction technique was employed. The dose-lengt h product was 605.33 mGy-cm. COMPARISON: None FINDINGS: There are scattered areas of low attenuation in the cerebral white matter, which is within normal limits for the patient's age. There is no intracranial hemorrhage, acute infarction, or abnorm al intracranial mass lesion. The ventricles are normal in size. There is mucosal thickening in the pa ranasal sinuses. There is fluid in sphenoid sinus. There are likely changes of ocular lens replacemen t surgeries. There is a small right mastoid effusion. IMPRESSION: 1. Normal aging brain. Reviewed, dictated and finalized at location A. 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 Normal aging brain.
--- NOTE | ~2023-08-29 | XR_ITS ---
EXAMINATION: XR chest 1V portable INDICATION: Weakness, nausea TECHNIQUE: Portable AP chest at 1455 hours COMPARISON: 12/22/2021 FINDINGS: The lungs are free of acute opacities. No pleural effusion or pneumothorax. The cardiomedia stinal silhouette is normal. IMPRESSION: 1. No acute cardiopulmonary abnormality. Reviewed, dictated and finalized at location B. OR DATA WAREHOUSE ARCHITECT
[2023-08-29 14:05] VITALS: BP 144/63; PULSE 100; RESP 18; TEMP 36.7; O2SAT 100
--- NOTE | 2023-08-29 14:21 | ECG_ITS ---
Measurements Intervals [place] Rate: 99 P: 61 NE: 147 QRS: 4 QRSD: 90 T: 48 QT: 318 QTc: 408 Interpretive Statements SINUS RHYTHM NORMAL ELECTROCARDIOGRAM COMPARED TO ECG 12/22/2021 17:22:39 NO SIGNIFICANT CHANGES Electronically Signed On 08-30-2023 7:31:39 MANAGER MECHANICAL by Jesse Capps M.D.
[2023-08-29 14:35] LABS: Basophils Percent Auto 0.4 % (0.2-1.2); Eosinophils Absolute Auto 0.1 K/mm3 (0-0.3); Eosinophils Percent Auto 1.4 % (0-4.4); Hematocrit 38.6 % (37.0-47.0); Hemoglobin 11.9 g/dL (12.0-15.0); Immature Granulocyte Absolute 0.05 K/mm3 (0.00-0.031); Immature Granulocyte Percent A 0.7 % (0-0.5); Lymphocytes Absolute Auto 1.21 K/mm3 (0.9-3.2); Lymphocytes Percent Auto 16.8 % (18.3-44.2); Mean Corpuscular HGB Conc 30.8 g/dl (32-36); Mean Corpuscular Hemoglobin 27.8 pg (26-34); Mean Corpuscular Volume 90.2 fl (80-100); Mean Platelet Volume 9.7 fl (7.4-10.4); Monocytes Absolute Auto 0.8 K/mm3 (0.1-0.6); Monocytes Percent Auto 11.2 % (2.6-8.5); Neutrophils Percent Auto 69.5 % (45.5-73.1); Platelet Count Result 332 k/mm3 (150-375); Red Blood Count 4.28 M/mm3 (4.2-5.4); Red Cell Distribution Width 12.7 % (11.5-14.5); White Blood Count 7.2 K/mm3 (4.5-10.0)
[2023-08-29 14:46] LABS: Glucose Point of Care 105 mg/dl (65-105)
[2023-08-29 14:48] LABS: Prothrombin Time 13.7 Seconds (11.1-14.7)
[2023-08-29 14:49] LABS: Partial Thromboplastin Time 33.5 SECONDS (22.3-36.8)
[2023-08-29 14:51] LABS: Alanine Aminotransferase 13 U/L (6-35); Alkaline Phosphatase 117 U/L (38-126); Anion Gap 6 mmol/L (8-16); Aspartate Amino Transferase 23 U/L (14-36); Bilirubin,Total 0.7 mg/dL (0.2-1.3); Blood Urea Nitrogen 15 mg/dL (7-17); Calcium 10.5 mg/dL (8.4-10.2); Carbon Dioxide 27 mmol/L (22-30); Chloride 105 mmol/L (98-107); Estimated CRCL calculation 49 ml/min; Estimated Glomerular Filt Rate > 60; Glucose 98 mg/dL (65-110); Potassium 3.9 mmol/L (3.4-5.0); Sodium 138 mmol/L (137-145)
--- NOTE | 2023-08-29 14:52 | ED.GENADULT ---
HPI - General Adult General Chief complaint: Unspecified Stated complaint: not feeling well 2 months Time Seen by Provider: 08/29/23 14:31 Source: patient, RN notes reviewed and old records reviewed Mode of arrival: ambulatory Limitations: no limitations History of Present Illness HPI narrative: This is a 78 year old female with history of DM, hyperlipidemia, hypothyroidism who presents for evaluation of left facial droop and not feeling well. Patient states she went to sleep last night at 7 pm because she did not feel well. She woke up this morning at 5 am and she noticed left facial droop. She also notices pain behind her left ear. She reports notices some difficulty with drinking water like it is going to come of her mouth. She reports her left eye wants to water. She denies focal extremity weakness. She states she felt a little off this morning. She reports she has not felt well for 2 months. She reports starting with cold symptoms 2 months ago with cough, congestion, drainage Related Data Home Medications Medication Instructions Recorded Confirmed simvastatin 10 mg tablet 10 mg PO HS 12/22/21 08/06/23 multivitamin 1 tablet PO DAILY 08/06/23 08/06/23 Allergies Allergy/AdvReac Type Severity Reaction Status Date / Time No Known Allergies Allergy Verified 08/06/23 15:52 Review of Systems Constitutional: Constitutional: Denies weakness Eyes: Eyes: Reports dry eyes ENT: Reports nasal congestion Cardiovascular: Cardiovascular: Denies syncope, Denies rapid heart rate, Denies irregular heart rhythm, Denies leg edema and Denies dyspnea Respiratory: Respiratory: Denies chest congestion, Reports cough, Denies hemoptysis, Denies excessive phlegm production and Denies dyspnea Gastrointestinal: Gastrointestinal: Denies abdominal pain, Denies hematochezia, Denies diarrhea and Denies vomiting Genitourinary: Genitourinary: Denies hematuria and Denies dysuria Musculoskeletal: Musculoskeletal: Denies joint swelling, Denies loss of height and Denies muscle weakness Neurologic: Denies syncope, Denies focal weakness and Denies weakness PMFSH Past Medical History Medical History Cancer of right breast (~2003) Diabetes mellitus (~2014) A1c 6% 06/2021 Hepatic steatosis Hypothyroidism (acquired) Macular degeneration Mixed hyperlipidemia due to type 2 diabetes mellitus Other screening mammogram Post-menopausal Vitamin D deficiency disease Surgical History Surgical History History of colonoscopy with polypectomy (07/2016) With 3 polyps resected History of left inguinal hernia repair (01/2019) Due to incarceration History of reconstruction of right breast History of right mastectomy (~2003) History of tonsillectomy and adenoidectomy History of tubal ligation Status post cataract extraction of both eyes with insertion of intraocular lens Family History Family History Sibling Diabetes mellitus Colon cancer Brain aneurysm Breast cancer Muscular dystrophy Mother Ovarian cancer Diabetes mellitus Hypertension Neuropathy Father Brain cancer Social History Social History Social History: Patient drinks 2 cups of caffeine daily. She exercises a couple of times per week. Smoking status: Former smoker Tobacco type: cigarettes Second hand tobacco smoke exposure: Yes Additional smoking assessment comments: She smoked 1 pack per week until her youngest son was born. Alcohol intake: current Alcohol use details: Once every couple of weeks Substance use: never Substance use type: does not use Lack of Transportation: No Lack of Food: Never True Current Housing: I Have Housing Concerned About Future Housing: No Difficulty Paying Gas/Electric Bills: YES Difficulty Pay
[2023-08-29] MEDS: SODIUM CHLORIDE 0.9% IV 1,000 ML 999 ML IV CONT ×2 (14:54→16:36)
[2023-08-29 15:02] LABS: Troponin I < 0.012 ng/mL (0.000-0.034)
[2023-08-29 15:02] LABS: Appearance Urine Clear (Clear); Bilirubin Urine 1+ (Negative); Blood Urine Negative (Negative); Color Urine Dark Yellow (Yellow); Glucose Urine UA Negative (Negative); Ketones Urine Negative (Negative); Leukocyte Esterase Ur Negative LEU/UL (Negative); Nitrate Urine Negative (Negative); Protein Urine Negative (Negative); Specific Grav Ur 1.029 (1.001-1.035)
[2023-08-29 15:26] LABS: Add Urine Microscopic? NO
[2023-08-29 16:06] VITALS: BP 171/73; PULSE 108
[2023-08-29 16:08] VITALS: BP 168/77; PULSE 111
[2023-08-29 16:10] VITALS: BP 149/75; PULSE 116
[2023-08-29 18:30] VITALS: BP 147/76; PULSE 86; RESP 18; O2SAT 98
== END 2023-08-29 18:38 | disposition home or self-care (01) ==
PROVIDERS: Emergency Medicine; Emergency Provider General Practice; PCP Nurse Practitioner Adult Health
DX: G51.0 Bell's palsy (principal); E11.9 Type 2 diabetes mellitus without complications; E03.9 Hypothyroidism, unspecified; E78.2 Mixed hyperlipidemia; Z85.3 Personal history of malignant neoplasm of breast; Z87.891 Personal history of nicotine dependence
CPT/HCPCS: 36415; 70450; 71045; 80053; 81003; 82948; 84484; 85025; 85610; 85730; 93005; 96360; 96361; 99284; J7030

== ENCOUNTER 2023-12-01 15:17 | Outpatient (CLI) | payer MEDICARE, SELFPAY ==
--- NOTE | ~2023-12-01 | XR_ITS ---
Cervical Spine: AP and lateral views Clinical History: Pain Findings: The normal lordotic curve is maintained. No fracture or subluxation. There is advanced dege nerative disc narrowing at C6-C7. There is mild degenerative disc narrowing at C4-C5. Mild facet join t degenerative changes are present. Pre-vertebral soft tissues are unremarkable. Impression: Mild degenerative spondylosis overall, as noted above. Reviewed, dictated and finalized at location . Impression: Mild degenerative spondylosis overall, as noted above.
--- NOTE | ~2023-12-01 | XR_ITS ---
EXAM: XR shoulder RT min 2V DATE: 12/01/2023 15:39 HISTORY: M25.511 - Pain in right shoulder . COMPARISON: None available. FINDINGS: Decreased mineralization. No fracture or dislocation. No lytic or blastic lesion. Moderate acromioclavicular and mild glenohumeral degenerative change. No erosion or periosteal change. Soft t issues within normal limits. Surgical clips over the right upper quadrant. IMPRESSION: Osteopenia. Polyarticular right shoulder osteoarthritis. Reviewed, dictated and finalized at location K.
[2023-12-01 19:26] LABS: Anion Gap 3 mmol/L (8-16); Blood Urea Nitrogen 18 mg/dL (7-17); Calcium 10.7 mg/dL (8.4-10.2); Carbon Dioxide 27 mmol/L (22-30); Chloride 107 mmol/L (98-107); Cholesterol 178 mg/dL (0-200); Estimated Glomerular Filt Rate > 60; Glucose 101 mg/dL (65-110); HDL Direct 64 mg/dL; Potassium 4.2 mmol/L (3.4-5.0); Sodium 137 mmol/L (137-145); Triglycerides 197 mg/dL (<150)
[2023-12-01 19:32] LABS: Hematocrit 42.7 % (37.0-47.0); Hemoglobin 13.2 g/dL (12.0-15.0); Mean Corpuscular HGB Conc 30.9 g/dl (32-36); Mean Corpuscular Hemoglobin 28.1 pg (26-34); Mean Corpuscular Volume 90.9 fl (80-100); Mean Platelet Volume 10.3 fl (7.4-10.4); Platelet Count Result 341 k/mm3 (150-375); Red Cell Distribution Width 13.8 % (11.5-14.5); White Blood Count 6.1 K/mm3 (4.5-10.0)
[2023-12-01 19:37] LABS: LDL Cholesterol Direct 85 mg/dL
[2023-12-01 20:45] LABS: Hemoglobin A1C 6.1 % (<5.7)
== END 2023-12-01 15:18 | disposition home or self-care (01) ==
LOC: ANHBWCLAB 15:18
PROVIDERS: PCP Nurse Practitioner Adult Health; Visit Provider Nurse Practitioner Adult Health
DX: E11.9 Type 2 diabetes mellitus without complications (principal); E03.9 Hypothyroidism, unspecified; M47.892 Other spondylosis, cervical region; M85.811 Other specified disorders of bone density and structure, right shoulder; M19.011 Primary osteoarthritis, right shoulder
CPT/HCPCS: 36415; 72040; 73030; 80048; 80061; 83036; 84443; 85027

== ENCOUNTER 2024-04-15 15:26 | Outpatient (CLI) | payer MEDICARE, SELFPAY ==
--- NOTE | ~2024-04-15 | XR_ITS ---
XR hip RT min 2V Ordering provider: Jacy Hansen APRN History: . right hip pain when walking x 2 wks, NKI . Comparison: The FINDINGS: BONES: No acute fracture or dislocation. HIP JOINT SPACES: Normal. SACROILIAC JOINT SPACES/LUMBAR SPINE: The right sacroiliac joint shows sacroiliitis. Mild degenerati ve changes of the visualized lower lumbar spine. PUBIC SYMPHYSIS: Normal. SOFT TISSUES: Normal. IMPRESSION: No acute osseous abnormality pelvis and right hip. Reviewed, dictated and finalized at location A.
== END 2024-04-15 15:27 | disposition home or self-care (01) ==
LOC: ANHBWCIMG 15:28
PROVIDERS: PCP Nurse Practitioner Adult Health; Visit Provider Nurse Practitioner Adult Health
DX: M25.551 Pain in right hip (principal)
CPT/HCPCS: 73502

== ENCOUNTER 2024-06-20 11:55 | Emergency (ER) | payer MEDICARE, SELFPAY ==
--- NOTE | ~2024-06-20 | XR_ITS ---
EXAMINATION: XR hand RT min 3V DATE: 06/20/2024 12:53 INDICATION: Animal bite to the right hand TECHNIQUE: Posteroanterior, oblique and lateral views of the right hand were obtained. COMPARISON: None. FINDINGS: No fracture. Polyarticular osteoarthritis, severe at the first carpometacarpal and multiple interphal angeal joints with distal predominance and moderate at the first second third metacarpophalangeal bisi nts and mild at majority the remaining joints at the right hand and wrist. Mild palmar subluxation at the second and third metacarpophalangeal joints and mild radial subluxation and angulation at the fi rst interphalangeal joint likely related to the previous noted osteoarthritis. There is soft tissue s welling throughout the hand. Small lucent foci of likely soft tissue gas at the base of the second an d third digits and suggestion of an additional laceration at the dorsal aspect of the thumb. No radio paque foreign bodies. IMPRESSION: 1. No radiopaque foreign bodies or acute osseous abnormality. 2. Severe polyarticular osteoarthritis. Reviewed, dictated and finalized at location A.
[2024-06-20 12:02] VITALS: BP 177/68; PULSE 70; RESP 17; TEMP 36.3; O2SAT 98
--- NOTE | 2024-06-20 14:40 | ED.ANIMALBIT ---
HPI - Animal Bite General Chief Complaint: Animal Bite <Rufino Luu MD - Last Filed: 06/21/24 12:14> Stated Complaint: bite <Rufino Luu MD - Last Filed: 06/21/24 12:14> Time Seen by Provider: 06/20/24 14:29 <Rufino Luu MD - Last Filed: 06/21/24 12:14> History of Present Illness HPI narrative: 79-year-old female presenting to the emergency department for evaluation for a dog bite to her right hand. Patient states that this is her own dog that is a rescue dog. Patient states she was attempting to clear it ear mites of the dogs ears when it bit her. Patient does have 2 lacerations to the right hand. <Rufino Luu MD - Last Filed: 06/21/24 12:14> Related Data Home Medications: Home Medications Medication Instructions Recorded Confirmed simvastatin 10 mg tablet 10 mg PO HS 12/22/21 04/15/24 multivitamin 1 tablet PO DAILY 08/06/23 04/15/24 <Rufino Luu MD - Last Filed: 06/21/24 12:14> Allergies/Adverse Reactions: Allergies Allergy/AdvReac Type Severity Reaction Status Date / Time No Known Allergies Allergy Verified 04/23/24 10:47 <Rufino Luu MD - Last Filed: 06/21/24 12:14> Review of Systems Review of Systems: All systems reviewed & are unremarkable except as noted in HPI and below <Rufino Luu MD - Last Filed: 06/21/24 12:14> [facility] Past Medical History Medical History: Medical History (Updated 06/21/24 @ 00:00 by César Singh) Cancer of right breast (~2003) Diabetes mellitus (~2014) A1c 6% 06/2021 Hepatic steatosis Hypothyroidism (acquired) Macular degeneration Mixed hyperlipidemia due to type 2 diabetes mellitus Numbness and tingling of both upper extremities Other screening mammogram Post-menopausal Radiculopathy Rotator cuff tendonitis Subacromial bursitis Vitamin D deficiency disease <Rufino Luu MD - Last Filed: 06/21/24 12:14> Surgical History Surgical History: Surgical History History of colonoscopy with polypectomy (07/2016) With 3 polyps resected History of left inguinal hernia repair (01/2019) Due to incarceration History of reconstruction of right breast History of right mastectomy (~2003) History of tonsillectomy and adenoidectomy History of tubal ligation Status post cataract extraction of both eyes with insertion of intraocular lens <Rufino Luu MD - Last Filed: 06/21/24 12:14> Family History Family History: Family History Sibling Diabetes mellitus Colon cancer Brain aneurysm Breast cancer Muscular dystrophy Mother Ovarian cancer Diabetes mellitus Hypertension Neuropathy Father Brain cancer <Rufino Luu MD - Last Filed: 06/21/24 12:14> Social History Social History: Social History Social History: Patient drinks 2 cups of caffeine daily. She exercises a couple of times per week. Smoking status: Former smoker Tobacco type: cigarettes Second hand tobacco smoke exposure: Yes Additional smoking assessment comments: She smoked 1 pack per week until her youngest son was born. Alcohol intake: current Alcohol use details: Once every couple of weeks Substance use: never Substance use type: does not use Lack of Transportation: No Lack of Food: Never True Current Housing: I Have Housing Concerned About Future Housing: No Difficulty Paying Gas/Electric Bills: YES Difficulty Paying for Meds: No Currently Unemployed: No Education: Trade/Vocational Certificate Difficulty w/ Childcare or Family Care: No Living arrangements: alone Additional living arrangements comments: She has been since 2019. She lives alone. 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
[2024-06-20 16:30] VITALS: BP 126/80; PULSE 78; RESP 16; TEMP 36.6; O2SAT 98
[2024-06-20] MEDS: AMPICILLIN SULB 1.5 GM/NS 50ML 1.5 GM/50 ML VIAL IVPB (16:41)
[2024-06-20] MEDS: TETANUS,DIPHTHERIA,AC PERTUSSIS ADULT (0.5 ML) BOOSTRIX IM (16:42)
[2024-06-20] MEDS: HYDROcodone/acetaminophen (*CRX) 5-325 MG TABLET 1 TAB PO (17:03)
[2024-06-20 17:30] VITALS: BP 134/78; PULSE 74; RESP 20; TEMP 36.4; O2SAT 100
== END 2024-06-20 17:30 | disposition home or self-care (01) ==
PROVIDERS: Emergency Provider Emergency Medicine; PCP Nurse Practitioner Adult Health
DX: S61.451A Open bite of right hand, initial encounter (principal); Z23 Encounter for immunization; E03.9 Hypothyroidism, unspecified; E11.69 Type 2 diabetes mellitus with other specified complication; E78.2 Mixed hyperlipidemia; H35.30 Unspecified macular degeneration; E55.9 Vitamin D deficiency, unspecified; Z85.3 Personal history of malignant neoplasm of breast; Z86.0100 Personal history of colon polyps, unspecified; Z87.891 Personal history of nicotine dependence; Z90.11 Acquired absence of right breast and nipple; Z96.1 Presence of intraocular lens; Z98.42 Cataract extraction status, left eye; Z98.41 Cataract extraction status, right eye; Z79.84 Long term (current) use of oral hypoglycemic drugs; Z79.899 Other long term (current) drug therapy; W54.0XXA Bitten by dog, initial encounter
CPT/HCPCS: 12002; 73130; 90471; 90715; 96365; 99284; A9270; J0295

== ENCOUNTER 2024-09-17 09:13 | Outpatient (CLI) | payer MEDICARE, SELFPAY ==
--- NOTE | ~2024-09-17 | MR_ITS ---
EXAMINATION: MR lumbar spine wo con DATE: 09/17/2024 10:04 INDICATION: Low back pain. Sacroiliitis. TECHNIQUE: Magnetic resonance imaging (MRI) of the lumbar spine was performed without intravenous con trast. Sequences included sagittal T2-weighted FSE, sagittal T2-weighted FS FSE, sagittal T1-weighted FSE, and axial T2-weighted FSE. COMPARISON: None FINDINGS: There is 4 degrees levocurvature of thoracolumbar spine. There is 3 mm anterolisthesis of L 4 on L5. There is mild chronic anterior wedging of T11 and T12 vertebral bodies, likely physiologic. There is mildly decreased disc height at L4-L5. There is ligamentum flavum hypertrophy at the disc le vels from L1-L2 through L4-L5. 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 The distal spinal cord signal intensity is normal. The conus medullaris is at L1. The following disc levels are specifically discussed: L1-L2: The disc is bulging. There is mild right and severe left facet joint osteoarthritis. There is mild bilateral neural foraminal stenosis. There is mild central canal stenosis. L2-L3: The disc is bulging. There is severe bilateral facet joint osteoarthritis. There is mild bilat eral neural foraminal stenosis. There is mild central canal stenosis. L3-L4: The disc is bulging and has an annular fissure. There is severe bilateral facet joint osteoart hritis. There is mild bilateral neural foraminal stenosis. There is mild central canal stenosis. L4-L5: The disc is bulging and has an annular fissure. There is severe bilateral facet joint osteoart hritis. There is mild bilateral neural foraminal stenosis. There is mild central canal stenosis. L5-S1: The disc is bulging. There is moderate right and severe left facet joint osteoarthritis. There is mild left neural foraminal stenosis. There is mild central canal stenosis. IMPRESSION: 1. Mild lumbar spondylosis. Reviewed, dictated and finalized at location A. OSAL REP IMPRESSION: 1. Mild lumbar spondylosis.
--- NOTE | ~2024-09-17 | MR_ITS ---
EXAMINATION: MR pelvis wo con DATE: 09/17/2024 10:07 INDICATION: Low back pain. Sacroiliitis. TECHNIQUE: Magnetic resonance imaging (MRI) of the pelvis was performed without intravenous contrast. COMPARISON: CT abdomen and pelvis 09/23/2018 FINDINGS: There is levocurvature of thoracolumbar spine. There is mild lumbar spondylosis. No fracture. There i s moderate osteoarthritis of the sacroiliac joints. There is mild osteoarthritis of the hips. There i s a small right hip joint effusion. There are partial tears of the right gluteus minimus and gluteus medius tendons. There is a partial tear of left gluteus minimus tendon. There is mild left gluteus me dius tendinopathy. There is moderate right and mild left trochanteric bursitis. The iliopsoas tendons are normal. There are partial tears of the hamstring origins bilaterally. There is a 12 mm fibroid i n the uterus. IMPRESSION: 1. Moderate osteoarthritis of the sacroiliac joints. No evidence of inflammatory arthropathy. Reviewed, dictated and finalized at location A. 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 Moderate osteoarthritis of the sacroiliac joints. No evidence of inflammator y arthropathy.
== END 2024-09-17 09:14 | disposition home or self-care (01) ==
LOC: GOSHIMG 09:14
PROVIDERS: PCP Nurse Practitioner Adult Health; Visit Provider Nurse Practitioner Family
DX: M54.10 Radiculopathy, site unspecified (principal); M54.50 Low back pain, unspecified; M46.1 Sacroiliitis, not elsewhere classified; M43.06 Spondylolysis, lumbar region; M85.88 Other specified disorders of bone density and structure, other site
CPT/HCPCS: 72148; 72195

== ENCOUNTER 2024-11-13 02:59 | Emergency (ER) | payer MEDICARE, SELFPAY ==
[2024-11-13 03:13] VITALS: BP 154/84; PULSE 82; RESP 16; TEMP 36.3; O2SAT 98
--- NOTE | 2024-11-13 03:49 | ED.URI ---
HPI - URI/Sore Throat General Chief Complaint: Upper Respiratory Infection Stated Complaint: cough x 2 weeks Time Seen by Provider: 11/13/24 03:26 History of Present Illness HPI Narrative: 79-year-old female presenting to the emergency department for evaluation of cough for last 2 weeks. She states that she has had a mucousy and phlegm productive cough and feels like it gets stuck in her throat when she coughs especially at night. She was prescribed Tessalon Perles and has been taking Delsym without any improvement her cough. Denies any fever chills. No shortness of breath or chest pain. No nausea vomiting. No abdominal pain or back pain. She was otherwise in her normal state of health. Her primary care provider recently prescribed her Tessalon Perles but she states they are not helping. Related Data Home Medications ?Medication ?Instructions ?Recorded ?Confirmed ?Last Taken ?Type simvastatin 10 mg tablet 10 mg PO HS 12/22/21 08/09/24 Unknown History multivitamin 1 tablet PO DAILY 08/06/23 08/09/24 Unknown History Allergies Allergy/AdvReac Type Severity Reaction Status Date / Time No Known Allergies Allergy Verified 11/13/24 02:59 Review of Systems Review of Systems: As reviewed above in HPI [facility] Past Medical History Medical History Lumbar spine pain Sacroiliitis Left knee DJD Radiculopathy Numbness and tingling of both upper extremities Subacromial bursitis Rotator cuff tendonitis Mixed hyperlipidemia due to type 2 diabetes mellitus Cancer of right breast (~2003) Hepatic steatosis Macular degeneration Diabetes mellitus (~2014) A1c 6% 06/2021 Hypothyroidism (acquired) Post-menopausal Other screening mammogram Vitamin D deficiency disease Surgical History Surgical History History of reconstruction of right breast History of tonsillectomy and adenoidectomy Status post cataract extraction of both eyes with insertion of intraocular lens History of tubal ligation History of right mastectomy (~2003) History of colonoscopy with polypectomy (07/2016) With 3 polyps resected History of left inguinal hernia repair (01/2019) Due to incarceration Family History Family History Sibling Diabetes mellitus Colon cancer Brain aneurysm Breast cancer Muscular dystrophy Mother Ovarian cancer Diabetes mellitus Hypertension Neuropathy Father Brain cancer Social History Social History Social History: Patient drinks 2 cups of caffeine daily. She exercises a couple of times per week. Smoking status: Former smoker Tobacco type: cigarettes Second hand tobacco smoke exposure: Yes Additional smoking assessment comments: She smoked 1 pack per week until her youngest son was born. Alcohol intake: current Alcohol use details: Once every couple of weeks Substance use: never Substance use type: does not use Lack of Transportation: No Lack of Food: Never True Current Housing: I Have Housing Concerned About Future Housing: No Difficulty Paying Gas/Electric Bills: YES Difficulty Paying for Meds: No Currently Unemployed: No Education: Trade/Vocational Certificate Difficulty w/ Childcare or Family Care: No Living arrangements: alone Additional living arrangements comments: She has been since 2019. She lives alone. 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 Gender identity (if verbalized by the patient): Female Sexual Orientation (if Verbalized by the Patient): Straight or Heterosexual Spiritual care concerns: No Agree to blood products: Yes Exam Narrative: GENERAL: Coughing frequently throughout the encounter, nonproductive, no acute distress, alert oriented. HEAD: [Normocephalic, atraumatic.] EYES: [PERRLA and EOMI.] ENT: Nares clear, no rhinorrhea or epistaxis. Mucous membranes moist. NECK: Supple. CHEST: [Clear to auscultation. No respiratory distress.] HEART: [Regular rate and rhythm]. No murmur heard. [Normal peripheral pulses.] ABDOMEN: [Soft, nondistended], [nontender], [No rigidity or guarding] EXTREMITIES: Normal range of motion. [No edema.] SKIN: Warm, dry, no rash. NEURO: [No focal deficits]. Alert and oriented [x3.] PSYCH: [Normal mood and affect.] Course Vital Signs Vital signs: Vital Signs Temperature 36.3 C L 11/13/24 03:13 Pulse Rate 82 11/13/24 03:13 Respiratory Rate 16 11/13/24 03:13 Blood Pressure 154/84 H 11/13/24 03:13 Pulse Oximetry 98 11/13/24 03:13 Oxygen Delivery Room Air 11/13/24 03:13 Temperature 36.3 C L 11/13/24 03:13 Pulse Rate 87 11/13/24 04:36 Respiratory Rate 15 11/13/24 04:36 Blood Pressure 152/70 H 11/13/24 04:36 Pulse Oximetry 99 11/13/24 04:36 Oxygen Delivery Room Air 11/13/24 03:13 MDM - URI/Sore Throat MDM Narrative Medical decision making narrative: 79-year-old female presenting with a upper respiratory infection, productive cough for last 2 weeks. No fever chills. No shortness of breath or chest discomfort. She has clear breath sounds with wheezing, prolonged expiratory phase or tachypnea. She does cough frequently throughout the examination states that benzonatate and Delsym or not helping. Suspicion presently is for viral upper respiratory infection such as COVID or influenza. Bronchitis or pneumonia are also possible. X-ray was obtained as well as viral panel swabs. Will re-evaluate and provide her prescription medications upon discharge. Patient tested positive for influenza. Chest x-ray shows some early consolidation findings in the right middle lobe consistent with her symptoms. We will treat her for community-acquired pneumonia at this time with doxycycline for the next 5 days. Patient was updated on plan of care and was stable for discharge home at this time. Medical Records Attestation: I reviewed the patient's medical records. Lab Data Attestation: I reviewed the patient's lab results. Labs: Lab Results 11/13/24 Range/Units 03:17 Influenza A (RT-PCR) Positive A (Negative) Influenza B (RT-PCR) Negative (Negative) RSV (RT-PCR) Negative (Negative) SARS-CoV-2 RNA (RT-PCR) Negative (Negative) Imaging Data Attestation: I personally reviewed and interpreted this imaging study as follows: My impression: Possible early consolidation right middle lobe suspicious for pneumonia Discharge Plan Discharge Clinical Impression: Community acquired pneumonia, Cough, Influenza A Patient Disposition: Home, Self-Care Condition: Stable Instructions: Antibiotic Form, Influenza (DC), Community Acquired Pneumonia (DC) Additional Instructions: You have a mild pneumonia, we will treat this with oral antibiotics. He also tested positive for influenza a, take Tylenol and ibuprofen for any fevers or chills. Follow-up with regular doctor outpatient. Patient Language: Haitian Prescriptions: New doxycycline hyclate 100 mg capsule 100 mg PO BID 5 Days Qty: 10 0RF ibuprofen 600 mg tablet 600 mg PO TID PRN (Reason: pain) Qty: 20 0RF guaifenesin [Mucinex] 1,200 mg tablet extended release 12hr 1,200 mg PO Q12H Qty: 20 0RF No Action multivitamin Tablet 1 tablet PO DAILY [id number] 3.5-10,000-1 mg/mL-unit/mL-% drops,suspension 4 drp LEFT EAR Q8H Qty: 10 0RF Ozempic 0.25 mg or 0.5 mg (2 mg/3 mL) pen injector 0.25 mg subcut WEEKLY Qty: 3 3RF Rx Instructions: for 4 weeks tramadol 50 mg tablet 50 mg PO Q6H PRN (Reason: pain) Qty: 30 1RF meloxicam 15 mg tablet 15 mg PO DAILY Qty: 90 0RF valacyclovir [Valtrex] 1 gram tablet 1,000 mg PO TID Qty: 21 0RF simvastatin 10 mg tablet 10 mg PO HS blood sugar diagnostic [OneTouch Ultra Blue Test Strip] Strip See Rx Instructions .ROUTE .COMPLEX Qty: 200 3RF Dose Instruction: TEST TWO TIMES DAILY Rx Instructions: TEST TWO TIMES DAILY levothyroxine 25 mcg tablet See Rx Instructions .ROUTE .COMPLEX Qty: 90 2RF Dose Instruction: Take 1 tablet by mouth once daily Rx Instructions: Take 1 tablet by mouth once daily metformin 500 mg tablet See Rx Instructions .ROUTE .COMPLEX Qty: 180 2RF Dose Instruction: TAKE 1 TABLET BY MOUTH TWICE DAILY WITH BREAKFAST AND WITH SUPPER Rx Instructions: TAKE 1 TABLET BY MOUTH TWICE DAILY WITH BREAKFAST AND WITH SUPPER benzonatate 200 mg capsule 200 mg PO BID PRN (Reason: cough) Qty: 20 0RF Follow-up/Referrals: Jacy Hansen APRN [Primary Care Provider] - Time of Disposition: 06:09
[2024-11-13 03:56] LABS: Influenza A QL RT-PCR Positive (Negative); Influenza B QL RT-PCR Negative (Negative); RSV RNA, RT-PCR Negative (Negative); SARS-CoV-2 RNA PCR Negative (Negative)
[2024-11-13 04:36] VITALS: BP 152/70; PULSE 87; RESP 15; O2SAT 99
[2024-11-13 06:29] VITALS: BP 164/90; PULSE 83; RESP 18; O2SAT 99
== END 2024-11-13 06:30 | disposition home or self-care (01) ==
PROVIDERS: Emergency Provider Student in an Organized Health Care Education/Training Program; PCP Nurse Practitioner Adult Health
DX: J10.00 Influenza due to other identified influenza virus with unspecified type of pneumonia (principal); Z20.822 Contact with and (suspected) exposure to COVID-19; E11.69 Type 2 diabetes mellitus with other specified complication; E78.2 Mixed hyperlipidemia; E03.9 Hypothyroidism, unspecified; E55.9 Vitamin D deficiency, unspecified; M17.12 Unilateral primary osteoarthritis, left knee; Z87.891 Personal history of nicotine dependence; Z96.1 Presence of intraocular lens; Z98.42 Cataract extraction status, left eye; Z98.41 Cataract extraction status, right eye; Z90.11 Acquired absence of right breast and nipple; Z79.85 Long-term (current) use of injectable non-insulin antidiabetic drugs; Z79.84 Long term (current) use of oral hypoglycemic drugs; Z79.899 Other long term (current) drug therapy
CPT/HCPCS: 71045; 87637; 99283

== ENCOUNTER 2025-01-18 17:53 | Emergency (ER) | payer MEDICARE, SELFPAY ==
--- NOTE | ~2025-01-18 | XR_ITS ---
HISTORY: dog bite X 2 WEEKS AGO ON PROXIMAL FOREARM COMPARISON: None TECHNIQUE: 2 views of the left forearm were performed FINDINGS: No acute or subacute fracture. Joint spaces are preserved and alignment is maintained. Soft tissues are without radiopaque foreign body or significant calcification. Significant soft tissue swelling is present. Age-appropriate mineralization. IMPRESSION: Significant soft tissue swelling, without acute fracture. Reviewed, dictated and finalized at location A.
--- OUTSIDE RECORDS SUMMARY | 2025-01-18 17:56 | XMS_ITS | Clinical Summary ---
Author Organization [facility] Address [address] [place] [address] Care Team Providers Care Licensed Customs Broker Name Role Phone Jesse Carmichael MD Primary Care Provider + [phone] Immunizations Immunization Administration Dates Next Due MODERNA COVID-19 (12+) MRNA, LNP-S, PF, 100 MCG/ 0.5 ML DOSE 11/10/2020,10/12/2020 Social History Tobacco Use Types Packs/Day Years Used Date Smoking Tobacco: Never Assessed Comments Unknown Sex and Gender Information Value Date Recorded Sex Assigned at Not on file Legal Sex Female 7:36 PM CDT Gender Identity Not on file Sexual Orientation Not on file Plan of Treatment Health Maintenance Due Date Last Done Comments Hepatitis C 1963 DTaP, Tdap and Td Vaccines ( 1 - Tdap) 1966 Zoster Vaccines (1 of 2) 1997 Annual Medicare Wellness Visit 02/26/2012 Dexa Scan (General) 02/26/2012 Pneumococcal Vaccine: 50+ Years (2 of 2 - PPSV23) 03/19/2018 03/19/2017 RSV Immunization or 60+ Years (1 - 1-dose 75+ series) 2022 COVID-19 Vaccine (2023-2 5 season) 2024 11/10/2020, 10/12/2020 Meningococcal B Vaccine Aged Out No l onger eligible based on patient's age to complete this topic Meningococcal Vaccine Aged Out No sudhir aaron eligible based on patient's age to complete this topic RSV Immunizations Under 20 Months Aged Out No longer eligible b ased on patient's age to complete this topic Insurance ESSENCE Care Teams Licensed Customs Broker Relationship Specialty Start Date End Date Jesse Carmichael MD [address] [place] [address] PCP - General INTERNAL MEDICINE 02/25/18
--- OUTSIDE RECORDS SUMMARY | 2025-01-18 17:56 | XMS_ITS | Clinical Summary ---
Author Organization [facility] Address [address] [place] [address] Care Team Providers Care Seam Stayer Name Role Phone Jesse Carmichael MD Primary Care Provider [phone] Source Comments [facility],non-owned Affiliates and Associated Physician Practices is amultiple site organization consisting of ambulatory clinics and hospital sitesin [place], [place]. This disclosure is being madepursuant to the Care Everywhere program and may not contain all information available regarding this patient. Last updated 18.[employer] Allergies No known active allergies Medications * Be aware that medications may not be up to date on this document. Alwaysverify current medications with the patient. ibuprofen (CHILDRENS IBUPROFEN) 40 MG/ML suspension Take 1 tablet by mouth. 11/18/2016 Active simvastatin (ZOCOR) 5 MG tablet Take 5 mg by mouth. 11/18/2016 Active metFORMIN (GLUCOPHAGE) 500 MG tablet Take 500 mg by mouth BID. 09/12/2016 Active Active Problems Problem Noted Date Diagnosed Date Fatty (change of) liver, not elsewhere classifie d 01/07/2017 Overview (12/15/2017): 05/26/14 CT: diffuse hepatic steatosis 12/27/16 Fibroscan 3.3 kPa Osteoarthritis 11/18/2016 Type 2 diabetes mellitus without complications 0 11/18/2016 Overview (12/15/2024): IMO 12/15/2024 Pure hypercholesterolemia 11/18/2016 Benign neoplasm of colon 11/18/2016 Overview (12/15/2017): Jul 2016 colonoscopy at --one polyp, told to repeat in 5 yrs Overweight 11/18/2016 Personal history of malignant neoplasm of breast 11/18/2016 Overview (12/15/2017): Diagnosed, about 2000. Stage 4, had mastectomy, chemo, radiation; no recurrence. Family History Medical History Relation Name Comments Cancer Brother 1 colon; Status: Alive Diabetes Brother 2 Status: Alive None Known Brother 3 Status: Alive None Known Brother 4 Status: d Brain Tumor Father Status: d CVA Mother Cancer Mother pancreas; Statu s: Cancer Sister 1 breast; Status: Alive None Known Sister 2 Status: Alive None Known Sister 3 Status: Alive Relation Name Status Comments Brother 1 Brother 2 Brother 3 Brother 4 Father Mother Sister 1 Sister 2 Sister 3 Social History Tobacco Use Types Packs/Day Years Used Date Smoking Tobacco: Former Cigarettes Q uit: 09/15/1971 Smokeless Tobacco: Never Alcohol Use Standard Drinks/Week Comments Not Currently 0 (1 standard drink = 0.6 oz pur e alcohol) Comments No Sex and Gender Information Value Date Recorded Sex Assigned at Not on file Legal Sex Female 5:36 PM DIGITAL MARKETING STRATEGIST Gender Identity Not on file Sexual Orientation Not on file Last Filed Vital Signs Vital Sign Reading Time Taken Comments Blood Pressure 127/81 06/09/2019 3:35 PM CDT Pulse 88 06/09/2019 3:35 PM CDT Temperature 36.7 C (98.1 F) 06/09/2019 3:35 PM CDT Respiratory Rate 14 06/09/2019 3:35 PM CDT Oxygen Saturation 98% 06/09/2019 3:35 PM CDT Inhaled Oxygen Concentration - - Weight 72.6 kg (160 lb) 06/09/2019 3:35 PM CDT Height 160 cm (5' 3 ) 06/09/2019 3:35 PM CDT Body Mass Index 28.34 06/09/2019 3:35 PM CDT Plan of Treatment Health Maintenance Due Date Last Done Comments BONE DENSITY TESTING 1945 DTAP/TDAP/TD VACCINES (1 - Tdap) 1966 PNEUMOCOCCAL VACCINE 50+ (1 of 1 - PCV) 1997 ZOSTER VACCINE (1 of 2) 1997 Respiratory Syncytial Virus (RSV) Vaccine Pt: or over 60 yrs (1 - 1-dose 75+ series) 2022 COVID-19 VACCINE (2023-2 5 season) 2024 DEPRESSION SCREENING 09/15/2024 INFLUENZA VACCINE (Season Ended) 2025 HEPATITIS C SCREENING Completed 11/18/2016 HEPATITIS B VACCINE Aged Out No longe r eligible based on patient's age to complete this topic HIB VACCINE Aged Out No longer eligi ble based on patient's age to complete this topic HPV VACCINE Aged Out No longer eligi ble based on patient's age to complete this topic MENINGOCOCCAL (Group B) VACC INE SHARED DECISION-MAKING Aged Out No longer eligibl e based on patient's age to complete this topic MENINGOCOCCAL GROUPS A/C/Y/W VACCINE Aged Out No longer eligible b ased on patient's age to complete this topic Procedures Procedure Name Priority Date/Time Associated Diagnosis Comments HEPATITIS C AB SCREEN RFLX NAAT QUANT Routine 11/18/2016 12:20 PM DIGITAL MARKETING STRATEGIST from Last 3 Months or Most Recently Relevant to Health Maintenance Results * HEPATITIS C AB SCREEN RFLX PCR QUANT (11/18/2016 12:20 PM DIGITAL MARKETING STRATEGIST) Hepatitis C Antibody Non-react [facility] Comment: Hepatitis C Antibody screen indicates no serologic evidence of past or current infection with Hepatitis C Virus. Patients with unexplained liver disease who are immunocompromised or suspected of having acute Hepatitis C infection may benefit from Nucleic Acid Test (KARINA) for Hepatitis C Viral RNA to confirm Hepatitis C status. BLOOD SPECIMEN / Unknown 11/18/2016 12:20 PM DIGITAL MARKETING STRATEGIST 11/18/2016 12:34 PM DIGITAL MARKETING STRATEGIST us Barry Mock MD LAB - CHEMISTRY OR DERABLES Final Result [address] [phone] from Last 3 Months or Most Recently Relevant to Health Maintenance Insurance MEDICARE MEDICARE Care Teams Seam Stayer Relationship Specialty Start Date End Date Jesse Carmichael MD [facility] [facility] [email or web address] [place] [address] PCP - General 11/29/14
[2025-01-18 18:34] VITALS: PULSE 96; RESP 16; TEMP 36.8; O2SAT 98
--- NOTE | 2025-01-18 19:24 | ED.SKABFB ---
HPI - Skin/Abscess/Foreign Bdy General Chief complaint: Skin/Abscess/Foreign Body <FAUSTINO Bobo Last Filed: 01/19/25 02:58> Stated complaint: Red rash left arm-dog bite 2 weeks ago <FAUSTINO Bobo Last Filed: 01/19/25 02:58> Time Seen by Provider: 01/18/25 18:53 <FAUSTINO Bobo Last Filed: 01/19/25 02:58> History of Present Illness HPI narrative: 79-year-old female presents to the emergency department for a rash to the left forearm for the past 2 weeks after being bit by her dog. Patient states she bent down to put her dog ate to tiredness and the dog bit her left forearm. States she has been applying topical antibiotic ointment and covering the area with bandages, however the redness to the area has persisted. She states the area is bumpy, itchy and tender. She states she has noticed some weeping but no purulence. Denies fever. States her dog is up-to-date on vaccines and she is up-to-date on her tetanus. <FAUSTINO Bobo Last Filed: 01/19/25 02:58> Related Data Home medications: Home Medications ?Medication ?Instructions ?Recorded ?Confirmed ?Last Taken ?Type simvastatin 10 mg tablet 10 mg PO HS 12/22/21 08/09/24 Unknown History multivitamin 1 tablet PO DAILY 08/06/23 08/09/24 Unknown History <FAUSTINO Bobo Last Filed: 01/19/25 02:58> Allergies/Adverse reactions: Allergies Allergy/AdvReac Type Severity Reaction Status Date / Time No Known Allergies Allergy Verified 11/22/24 14:13 <FAUSTINO Bobo Last Filed: 01/19/25 02:58> Review of Systems Review of Systems: All systems reviewed & are unremarkable except as noted in HPI and below <FAUSTINO Bobo Last Filed: 01/19/25 02:58> [facility] Past Medical History Medical History: Medical History Left shoulder pain Right shoulder pain Lumbar spine pain Sacroiliitis Left knee DJD Radiculopathy Numbness and tingling of both upper extremities Subacromial bursitis Rotator cuff tendonitis Mixed hyperlipidemia due to type 2 diabetes mellitus Cancer of right breast (~2003) Hepatic steatosis Macular degeneration Diabetes mellitus (~2014) A1c 6% 06/2021 Hypothyroidism (acquired) Post-menopausal Other screening mammogram Vitamin D deficiency disease <Bryanna Gupta PA-C - Last Filed: 01/19/25 02:58> Surgical History Surgical History: Surgical History History of reconstruction of right breast History of tonsillectomy and adenoidectomy Status post cataract extraction of both eyes with insertion of intraocular lens History of tubal ligation History of right mastectomy (~2003) History of colonoscopy with polypectomy (07/2016) With 3 polyps resected History of left inguinal hernia repair (01/2019) Due to incarceration <Bryanna Gupta PA-C - Last Filed: 01/19/25 02:58> Family History Family History: Family History Sibling Diabetes mellitus Colon cancer Brain aneurysm Breast cancer Muscular dystrophy Mother Ovarian cancer Diabetes mellitus Hypertension Neuropathy Father Brain cancer <Bryanna Gupta PA-C - Last Filed: 01/19/25 02:58> Social History Social History: Social History Social History: Patient drinks 2 cups of caffeine daily. She exercises a couple of times per week. Smoking status: Former smoker Tobacco type: cigarettes Second hand tobacco smoke exposure: Yes Additional smoking assessment comments: She smoked 1 pack per week until her youngest son was born. Alcohol intake: current Alcohol use details: Once every couple of weeks Substance use: never Substance use type: does not use Lack of Transportation: No Lack of Food: Never True Current Housing: I Have Housing Concerned About Future Housing: No Difficulty Paying Gas/Electric Bills: YES Difficulty Paying for Meds: No Currently Unemployed: No Education: Trade/Vocational Certificate Difficulty w/ Childcare or Family Care: No Living arrangements: alone Additional living arrangements comments: She has been since 2019. She lives alone. 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 Gender identity (if verbalized by the patient): Female Sexual Orientation (if Verbalized by the Patient): Straight or Heterosexual Spiritual care concerns: No Agree to blood products: Yes <Bryanna Gupta PA-C - Last Filed: 01/19/25 02:58> Exam Narrative: GENERAL: Well-appearing, well-nourished, and in no acute distress. HEAD: Normocephalic, atraumatic. EYES: EOMI. ENT: Nares clear, no rhinorrhea or epistaxis. Mucous membranes moist. NECK: Supple. CHEST: Clear to auscultation. No respiratory distress. HEART: Regular rate and rhythm. No murmur heard. Normal peripheral pulses. EXTREMITIES: Normal range of motion. No edema. SKIN: 10 x 8 cm area of blanching erythema and tenderness with scattered overlying papules and xerotic skin. No induration or fluctuation. Well-healed central 3 cm laceration with no wound dehiscence or purulence. No crepitus. Compartments are soft. Patient has full active and passive range of motion of upper extremity without difficulty. Radial, median ulnar nerves are intact. Sensation intact throughout. Radial pulse 2 +. NEURO: No focal deficits. Alert and oriented x3 <Bryanna Gupta PA-C - Last Filed: 01/19/25 02:58> Course MULTIPLE NEEDLE STITCHER/PA Physician Supervision I agree with midlevel documentation; I performed the medical decision making component of this evaluation. <Alena Pierce MD - Last Filed: 01/19/25 03:37> Vital Signs Vital signs: Vital Signs Temperature 98.3 F 01/18/25 18:34 Pulse Rate 96 01/18/25 18:34 Respiratory Rate 16 01/18/25 18:34 Pulse Oximetry 98 01/18/25 18:34 Oxygen Delivery Room Air 01/18/25 18:34 Temperature 96.8 F L 01/18/25 20:35 Pulse Rate 82 01/18/25 20:35 Respiratory Rate 16 01/18/25 20:35 Blood Pressure 165/76 H 01/18/25 20:35 Pulse Oximetry 99 01/18/25 20:35 Oxygen Delivery Room Air 01/18/25 18:34 <Brynana Gupta PA-C - Last Filed: 01/19/25 02:58> Vital Signs Temperature 98.3 F 01/18/25 18:34 Pulse Rate 96 01/18/25 18:34 Respiratory Rate 16 01/18/25 18:34 Pulse Oximetry 98 01/18/25 18:34 Oxygen Delivery Room Air 01/18/25 18:34 Temperature 96.8 F L 01/18/25 20:35 Pulse Rate 82 01/18/25 20:35 Respiratory Rate 16 01/18/25 20:35 Blood Pressure 165/76 H 01/18/25 20:35 Pulse Oximetry 99 01/18/25 20:35 Oxygen Delivery Room Air 01/18/25 18:34 <Alena Pierce MD - Last Filed: 01/19/25 03:37> MDM - Skin/Abscess/Foreign Bdy MDM Narrative Medical decision making narrative: 79-year-old female presents emergency department for rash to the dorsum of her left forearm after her dog bit her arm 2 weeks ago. Patient has been medicating the area with triple antibiotic ointment and bandages. She has developed a red, itchy, bumpy and tender rash to the region. Patient's daughter is up-to-date his vaccines patient is reportedly up-to-date on tetanus. Triage vitals are stable. She is afebrile and nontoxic appearing. Exam is significant for the above. X-ray showed no acute osseous findings. Patient updated on results. Suspect a component of focal cellulitis with concurrent allergic dermatitis. I advised her to discontinue the topical triple antibiotic ointment and adhesives as she may be having a reaction to these. She was given Kerlix and nonstick bandages and started on Augmentin. Encouraged Benadryl as needed. Advised to follow-up closely with PCP and discussed strict ED return precautions. She is agreeable with the plan verbalized understanding. Discharged in stable condition. <Bryanna Gupta PA-C - Last Filed: 01/19/25 02:58> Discharge Plan Discharge Clinical Impression: Dog bite, Allergic dermatitis <Bryanna Gupta PA-C - Last Filed: 01/19/25 02:58> Patient Disposition: Home <FAUSTINO Bobo Last Filed: 01/19/25 02:58> Condition: Stable <FAUSTINO Bobo Last Filed: 01/19/25 02:58> Instructions: Antibiotic Form, Cellulitis (ED), Dermatitis (ED) <FAUSTINO Bobo Last Filed: 01/19/25 02:58> Additional Instructions: Please take the antibiotics as directed to cover for a skin infection from the dog bite. Also refrain from using topical antibiotic ointment and adhesive that you may be having an allergic reaction to these. Take Benadryl as needed for itchiness. Follow closely with her primary care provider. Return to the emergency department if you develop worsening redness, fever, increasing pain or other concerning symptoms. <FAUSTINO Bobo Last Filed: 01/19/25 02:58> Patient Language: Telugu <FAUSTINO Bobo Filed: 01/19/25 02:58> Prescriptions: New amoxicillin-pot clavulanate 875-125 mg tablet 1 tablet PO Q12H Qty: 14 0RF diphenhydramine HCl 25 mg capsule 25 mg PO TID PRN (Reason: allergic reaction) Qty: 14 0RF No Action multivitamin Tablet 1 tablet PO DAILY oxigzcoj-cbdxuieuw-AY 3.5-10,000-1 mg/mL-unit/mL-% drops,suspension 4 drp LEFT EAR Q8H Qty: 10 0RF Ozempic 0.25 mg or 0.5 mg (2 mg/3 mL) pen injector 0.25 mg subcut WEEKLY Qty: 3 3RF Rx Instructions: for 4 weeks tramadol 50 mg tablet 50 mg PO Q6H PRN (Reason: pain) Qty: 30 1RF meloxicam 15 mg tablet 15 mg PO DAILY Qty: 90 0RF valacyclovir [Valtrex] 1 gram tablet 1,000 mg PO TID Qty: 21 0RF simvastatin 10 mg tablet 10 mg PO HS doxycycline hyclate 100 mg capsule 100 mg PO BID 5 Days Qty: 10 0RF ibuprofen 600 mg tablet 600 mg PO TID PRN (Reason: pain) Qty: 20 0RF guaifenesin [Mucinex] 1,200 mg tablet extended release 12hr 1,200 mg PO Q12H Qty: 20 0RF blood sugar diagnostic [OneTouch Ultra Blue Test Strip] Strip See Rx Instructions .ROUTE .COMPLEX Qty: 200 3RF Dose Instruction: TEST TWO TIMES DAILY Rx Instructions: TEST TWO TIMES DAILY levothyroxine 25 mcg tablet See Rx Instructions .ROUTE .COMPLEX Qty: 90 2RF Dose Instruction: Take 1 tablet by mouth once daily Rx Instructions: Take 1 tablet by mouth once daily benzonatate 200 mg capsule 200 mg PO BID PRN (Reason: cough) Qty: 20 0RF benzonatate 200 mg capsule 200 mg PO BID PRN (Reason: cough) Qty: 60 0RF metformin 500 mg tablet See Rx Instructions .ROUTE .COMPLEX Qty: 180 2RF Dose Instruction: TAKE 1 TABLET BY MOUTH TWICE DAILY WITH BREAKFAST AND WITH SUPPER Rx Instructions: TAKE 1 TABLET BY MOUTH TWICE DAILY WITH BREAKFAST AND WITH SUPPER <Bryanna Gupta PA-C - Last Filed: 01/19/25 02:58> Follow-up/Referrals: Jacy Hansen APRN [Primary Care Provider] - <Bryanna Gupta PA-C - Last Filed: 01/19/25 02:58>
--- OUTSIDE RECORDS SUMMARY | 2025-01-18 19:33 | XMS_ITS | Clinical Summary ---
Author Organization [facility] Address [address] [place] [address] Care Team Providers Care Software Engineer Name Role Phone Jesse Carmichael MD Primary Care Provider + [phone] Immunizations Immunization Administration Dates Next Due MODERNA [...] complete this topic Insurance ESSENCE Care Teams Software Engineer Relationship Specialty Start Date End Date Jesse Carmichael MD [address] [place] [address] PCP - General INTERNAL MEDICINE 02/25/18
--- OUTSIDE RECORDS SUMMARY | 2025-01-18 19:33 | XMS_ITS | Clinical Summary ---
Author Organization [facility] Address [address] [facility] [place] [address] Care Team Providers Care Grade Tamper Name Role Phone Jesse Carmichael MD Primary Care Provider [phone] Source Comments [employer],non-owned Affiliates and Associated Physician Practices is amultiple site organization consisting of ambulatory clinics and hospital sitesin [place], [place], [place] and [place]. This disclosure is being madepursuant to the Care Everywhere program and may not contain all information available regarding this patient. Last updated 18.[employer] Allergies No known active allergies Medications * [...] on file Legal Sex Female 5:36 PM MEAT CARVER Gender Identity Not on file Sexual Orientation [...] RFLX NAAT QUANT Routine 11/18/2016 12:20 PM MEAT CARVER from Last 3 Months or Most Recently Relevant to Health Maintenance Results * HEPATITIS C AB SCREEN RFLX PCR QUANT (11/18/2016 12:20 PM MEAT CARVER) Hepatitis C Antibody Non-react [facility] Comment: Hepatitis C Antibody screen indicates no serologic evidence of past or current infection with Hepatitis C Virus. Patients with unexplained liver disease who are immunocompromised or suspected of having acute Hepatitis C infection may benefit from Nucleic Acid Test (KARINA) for Hepatitis C Viral RNA to confirm Hepatitis C status. BLOOD SPECIMEN / Unknown 11/18/2016 12:20 PM MEAT CARVER 11/18/2016 12:34 PM MEAT CARVER us Barry Mock MD LAB - CHEMISTRY OR DERABLES Final Result [address] [phone] from Last 3 Months or Most Recently Relevant to Health Maintenance Insurance MEDICARE MEDICARE Care Teams Grade Tamper Relationship Specialty Start Date End Date Jesse Carmichael MD [facility] [facility] [address] [place] [address] PCP - General 11/29/14
[2025-01-18] MEDS: AMOXICILLIN/CLAVULANATE K 875-125 MG TAB 1 TABLET PO (19:49)
[2025-01-18 20:35] VITALS: BP 165/76; PULSE 82; RESP 16; TEMP 36; O2SAT 99
--- NOTE | 2025-01-18 20:35 | PC.NURSE ---
Pt. notified that her BP is elevated. She states that it is usually elevated during ER visits. No hx chronic hypertension. Denies CP or SOB. Will follow up with pcp tomorrow to make appt. for repeat BP to make sure it is WNL after today.
== END 2025-01-18 20:43 | disposition home or self-care (01) ==
PROVIDERS: Emergency Provider Physician Assistant; PCP Nurse Practitioner Adult Health
DX: L23.9 Allergic contact dermatitis, unspecified cause (principal); S51.852A Open bite of left forearm, initial encounter; W54.0XXA Bitten by dog, initial encounter; E78.5 Hyperlipidemia, unspecified; Z85.3 Personal history of malignant neoplasm of breast; E11.9 Type 2 diabetes mellitus without complications; E03.9 Hypothyroidism, unspecified
CPT/HCPCS: 73090; 99283; A9270

== ENCOUNTER 2025-03-19 14:07 | Emergency (ER) | payer MEDICARE, SELFPAY ==
--- NOTE | ~2025-03-19 | CT_ITS ---
EXAMINATION: CT cervical spine wo con DATE: 03/19/2025 16:38 INDICATION: fall TECHNIQUE: Computed tomography (CT) of the cervical spine was performed without intravenous contrast. Automated exposure control and iterative reconstruction technique were employed. The dose-length pro duct was 291.77 mGy-cm. COMPARISON: None. FINDINGS: Vertebral Body Alignment: Intact. Craniocervical and atlantoaxial alignment: Mild degenerative change. Alignment intact. Osseous structures/fracture: No evidence of a lytic or blastic process in the visualized spine. No e vidence of acute fracture. Cervical soft tissues: The paraspinal soft tissues planes are maintained. Degenerative changes: Degenerative changes, without severe neural foraminal or central canal narrowin g. IMPRESSION: No acute fracture or traumatic malalignment in the cervical spine. Reviewed, dictated and finalized at location K.
--- NOTE | ~2025-03-19 | XR_ITS ---
EXAM: XR wrist RT min 3V DATE: 03/19/2025 16:14 HISTORY: fall . COMPARISON: X-ray hand same date and 06/20/2024. FINDINGS: Decreased mineralization. No fracture or dislocation. No lytic or blastic lesion. Moderate -severe degrees of scattered degenerative changes. No erosion or periosteal change. Soft tissues with in normal limits. IMPRESSION: No acute osseous finding in the right wrist. Reviewed, dictated and finalized at location K.
--- NOTE | ~2025-03-19 | CT_ITS ---
EXAMINATION: CT brain wo con DATE: 03/19/2025 16:38 INDICATION: fall . TECHNIQUE: Computed tomography (CT) of the head was performed without intravenous contrast. The mA wa s adjusted according to patient size. Iterative reconstruction technique was employed. The dose-lengt h product was 605.33 mGy-cm. COMPARISON: 08/29/2023. FINDINGS: No acute intracranial hemorrhage or extra-axial fluid collection. No hydrocephalus, mass, or herniation. No acute ischemic infarct. Unremarkable dural venous sinus attenuation. No acute osseous abnormality. Bilateral mastoid fluid, the remaining aerated spaces are clear. Mild atrophy and chronic white matter change. Atherosclerotic intracranial calcification. Bilateral l ens replacements. IMPRESSION: No acute intracranial process. Reviewed, dictated and finalized at location K.
--- NOTE | ~2025-03-19 | XR_ITS ---
EXAM: XR hand RT min 3V DATE: 03/19/2025 14:25 HISTORY: fall, injury, pain in 1st and 2nd digit down into hand . COMPARISON: 06/20/2024. FINDINGS: Decreased mineralization. No fracture or dislocation. No lytic or blastic lesion. Moderate -severe scattered degenerative changes. No erosion or periosteal change. Soft tissues within normal l imits. IMPRESSION: No acute osseous finding in the right hand. Reviewed, dictated and finalized at location K.
[2025-03-19 14:07] VITALS: BP 160/70; PULSE 98; RESP 18; TEMP 36.6; O2SAT 98
--- OUTSIDE RECORDS SUMMARY | 2025-03-19 14:08 | XMS_ITS | Clinical Summary ---
Author Organization [facility] Address [address] [place] [address] Care Team Providers Care Powerhouse Oiler Name Role Phone Jesse Carmichael MD Primary Care Provider + [phone] Immunizations Immunization Administration Dates Next Due MODERNA [...] complete this topic Insurance ESSENCE Care Teams Powerhouse Oiler Relationship Specialty Start Date End Date Jesse Carmichael MD [address] [place] [address] PCP - General INTERNAL MEDICINE 02/25/18
--- OUTSIDE RECORDS SUMMARY | 2025-03-19 14:08 | XMS_ITS | Clinical Summary ---
Author Organization [facility] Address [address] [facility] [place] [address] Care Team Providers Care Bottle Labeler Name Role Phone Jesse Carmichael MD Primary Care Provider [phone] Source Comments [facility],non-owned Affiliates and Associated Physician Practices is amultiple site organization consisting of ambulatory clinics and hospital sitesin [place], [place], [place] and [place]. This disclosure is being madepursuant to the Care Everywhere program and may not contain all information available regarding this patient. Last updated 18.[employer] Allergies No known active allergies Medications * [...] on file Legal Sex Female 5:36 PM BUCKLE SEWER Gender Identity Not on file Sexual Orientation [...] 3:35 PM CDT Height 160 cm (5' 3) 06/09/2019 3:35 PM CDT Body Mass Index [...] RFLX NAAT QUANT Routine 11/18/2016 12:20 PM BUCKLE SEWER from Last 3 Months or Most Recently Relevant to Health Maintenance Results * HEPATITIS C AB SCREEN RFLX PCR QUANT (11/18/2016 12:20 PM BUCKLE SEWER) Hepatitis C Antibody Non-react [facility] Comment: Hepatitis C Antibody screen indicates no serologic evidence of past or current infection with Hepatitis C Virus. Patients with unexplained liver disease who are immunocompromised or suspected of having acute Hepatitis C infection may benefit from Nucleic Acid Test (KARINA) for Hepatitis C Viral RNA to confirm Hepatitis C status. BLOOD SPECIMEN / Unknown 11/18/2016 12:20 PM BUCKLE SEWER 11/18/2016 12:34 PM BUCKLE SEWER us Barry Mock MD LAB - CHEMISTRY OR DERABLES Final Result [address] [phone] from Last 3 Months or Most Recently Relevant to Health Maintenance Insurance MEDICARE MEDICARE Care Teams Bottle Labeler Relationship Specialty Start Date End Date Jesse Carmichael MD [facility] [facility] [employer] [address] [place] [address] PCP - General 11/29/14
--- OUTSIDE RECORDS SUMMARY | 2025-03-19 15:44 | XMS_ITS | Clinical Summary ---
Author Organization [facility] Address [address] [place] [address] Care Team Providers Care Misdraw Hand Name Role Phone Jesse Carmichael MD Primary Care Provider + [phone] Immunizations Immunization Administration Dates Next Due MODERNA [...] complete this topic Insurance ESSENCE Care Teams Misdraw Hand Relationship Specialty Start Date End Date Jesse Carmichael MD [address] [place] [address] PCP - General INTERNAL MEDICINE 02/25/18
--- OUTSIDE RECORDS SUMMARY | 2025-03-19 15:44 | XMS_ITS | Clinical Summary ---
Author Organization [email or web address] Address [address] [place] [address] Care Team Providers Care Correctional Medicine Physician Name Role Phone Jesse Carmichael MD Primary Care Provider [phone] Source Comments Unified [email or web address],non-owned Affiliates and Associated Physician Practices is amultiple site organization consisting of ambulatory clinics and hospital sitesin [place], [place], [place]. This disclosure is being madepursuant to the Care Everywhere program and may not contain all information available regarding this patient. 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 Patients with unexplained liver disease who are immunocompromised or suspected of having acute Hepatitis C infection may benefit from Nucleic Acid Test (KARINA) for Hepatitis C Viral RNA to confirm Hepatitis C status. BLOOD SPECIMEN / Unknown 11/18/2016 12:20 PM PRE SALES TECHNICAL CONSULTANT 11/18/2016 12:34 PM PRE SALES TECHNICAL CONSULTANT us Barry Mock MD LAB - CHEMISTRY OR DERABLES Final Result [address] [phone] from Last 3 Months or Most Recently Relevant to Health Maintenance Insurance MEDICARE MEDICARE Care Teams Correctional Medicine Physician Relationship Specialty Start Date End Date Jesse Carmichael MD [facility] [facility] [employer] [address] [place] [address] PCP - General 11/29/14
--- NOTE | 2025-03-19 16:05 | ED_ITS ---
HPI - Extremity Injury (Upper) General Chief Complaint: Extremity Injury, Upper Stated Complaint: right hand injury Time Seen by Provider: 03/19/25 15:01 History of Present Illness HPI narrative: 80-year-old female presents to the emergency department for right hand and wrist pain after an injury that occurred yesterday. Patient states she was walking dog when her dog took off quickly, cause the patient to spin around fall to the ground. She states she hit the left side of her head but did not lose consciousness. She states she braced herself with her right hand and wrist and has since experienced pain and swelling over the right 1st and 2nd metatarsals. She denies back pain, chest wall pain, abdominal pain or other injuries acquired. Related Data Home Medications ?Medication ?Instructions ?Recorded ?Confirmed ?Last Taken ?Type simvastatin 10 mg tablet 10 mg PO HS 12/22/21 08/09/24 Unknown History multivitamin 1 tablet PO DAILY 08/06/23 08/09/24 Unknown History Allergies Allergy/AdvReac Type Severity Reaction Status Date / Time No Known Allergies Allergy Verified 03/19/25 17:09 Review of Systems Review of Systems: All systems reviewed & are unremarkable except as noted in HPI and below PMFSH Past Medical History Medical History Left shoulder pain Right shoulder pain Lumbar spine pain Sacroiliitis Left knee DJD Radiculopathy Numbness and tingling of both upper extremities Subacromial bursitis Rotator cuff tendonitis Mixed hyperlipidemia due to type 2 diabetes mellitus Cancer of right breast (~2003) Hepatic steatosis Macular degeneration Diabetes mellitus (~2014) A1c 6% 06/2021 Hypothyroidism (acquired) Post-menopausal Other screening mammogram Vitamin D deficiency disease Surgical History Surgical History History of reconstruction of right breast History of tonsillectomy and adenoidectomy Status post cataract extraction of both eyes with insertion of intraocular lens History of tubal ligation History of right mastectomy (~2003) History of colonoscopy with polypectomy (07/2016) With 3 polyps resected History of left inguinal hernia repair (01/2019) Due to incarceration Family History Family History Sibling Diabetes mellitus Colon cancer Brain aneurysm Breast cancer Muscular dystrophy Mother Ovarian cancer Diabetes mellitus Hypertension Neuropathy Father Brain cancer Social History Social History Social History: Patient drinks 2 cups of caffeine daily. She exercises a couple of times per week. Smoking status: Former smoker Tobacco type: cigarettes Second hand tobacco smoke exposure: Yes Additional smoking assessment comments: She smoked 1 pack per week until her youngest son was born. Alcohol intake: current Alcohol use details: Once every couple of weeks Substance use: never Substance use type: does not use Lack of Transportation: No Lack of Food: Never True Current Housing: I Have Housing Concerned About Future Housing: No Difficulty Paying Gas/Electric Bills: YES Difficulty Paying for Meds: No Currently Unemployed: No Education: Trade/Vocational Certificate Difficulty w/ Childcare or Family Care: No Living arrangements: alone Additional living arrangements comments: She has been since 2019. She lives alone. 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 Gender identity (if verbalized by the patient): Female Sexual Orientation (if Verbalized by the Patient): Straight or Heterosexual Spiritual care concerns: No Agree to blood products: Yes Exam Narrative: GENERAL: Well-appearing, well-nourished, and in no acute distress. HEAD: Normocephalic, atraumatic. EYES: PERRLA and EOMI. ENT: Nares clear, no rhinorrhea or epistaxis. Mucous membranes moist. NECK: Mild tenderness to the cervical spine with no crepitus, step-offs or deformities. BACK: No midline thoracolumbar spinous tenderness, crepitus, step-offs or deformities CHEST: Clear to auscultation. No respiratory distress. No tenderness to chest wall HEART: Regular rate and rhythm. No murmur heard. Normal peripheral pulses. ABDOMEN: Soft, nontender, nondistended, normal active bowel sounds. EXTREMITIES: RUE: Doctors to the distal radius, 1st and 2nd metatarsals with edema over the dorsum of the 1st and 2nd metatarsals. Tenderness over the anatomical snuffbox. Full range of motion of wrist and all digits. Radial, median and ulnar nerves are intact. Radial pulses 2+. Cap refill than 2. Sensation intact throughout. No overlying skin changes or deformities. Compartments are soft. No tenderness remainder of extremity. No tenderness to remainder of upper or lower extremities. SKIN: Warm, dry, no rash. NEURO: No focal deficits. Alert and oriented x3 Course Vital Signs Vital signs: Vital Signs Temperature 97.9 F 03/19/25 14:07 Pulse Rate 98 03/19/25 14:07 Respiratory Rate 18 03/19/25 14:07 Blood Pressure 160/70 H 03/19/25 14:07 Pulse Oximetry 98 03/19/25 14:07 Oxygen Delivery Room Air 03/19/25 14:07 Temperature 97.9 F 03/19/25 14:07 Pulse Rate 98 03/19/25 14:07 Respiratory Rate 18 03/19/25 14:07 Blood Pressure 160/70 H 03/19/25 14:07 Pulse Oximetry 98 03/19/25 14:07 Oxygen Delivery Room Air 03/19/25 14:07 MDM - Extremity Injury (Upper) MDM Narrative Medical decision making narrative: 80-year-old female presents to the emergency department for right wrist and hand pain after mechanical injury to her yesterday. Patient did hit her head but did not lose consciousness. She is not anticoagulated. Vital signs with elevated blood pressure, otherwise unremarkable. Exam is notable for the above. CT brain cervical spine showed no acute findings. X-ray of the hand and wrist show no acute osseous findings. Patient was updated on results. She was given Tylenol but is having pain, [place] provided. Given remarkable tenderness over the anatomical snuffbox, patient was placed in a thumb spica splint advised to follow-up with orthopedist. Encouraged RICE, [place] provided for pain. Discussed strict ED return precaut ions. She is agreeable with the plan and verbalized understanding. Discharged in stable condition. Discharge Plan Discharge Clinical Impression: Tenderness of anatomical snuffbox Closed head injury Qualifiers: Encounter type: initial encounter Qualified Code(s): S09.90XA - Unspecified injury of head, initial encounter Patient Disposition: Home Condition: Stable Instructions: Antibiotic Form, Head Injury (DC), Hand Sprain (ED) Additional Instructions: Your evaluated in the emergency department after a fall. Your x-ray showed no broken bones in the CT scan shows no acute findings. Given the amount of t enderness over her scaphoid bone, your placed in a splint due to possible occult fracture as discussed. Please follow-up closely with the surgeon. Take hydrocodone as needed for pain. Rest, ice, elevate and keep your risk compress. Return to the emergency department if you develop vision changes, focal numbness or weakness, loss of consciousness, seizure-like activity, significantly worsening pain to your hand or wrist, or other concerning symptoms. Patient Language: Turkmen Prescriptions: New hydrocodone-acetaminophen 5-325 mg tablet 1 tablet PO Q8H PRN (Reason: pain) Qty: 14 0RF No Action multivitamin Tablet 1 tablet PO DAILY zbqzwixh-sypuuzeth-GY 3.5-10,000-1 mg/mL-unit/mL-% drops,suspension 4 drp LEFT EAR Q8H Qty: 10 0RF Ozempic 0.25 mg or 0.5 mg (2 mg/3 mL) pen injector 0.25 mg subcut WEEKLY Qty: 3 3RF Rx Instructions: for 4 weeks tramadol 50 mg tablet 50 mg PO Q6H PRN (Reason: pain) Qty: 30 1RF meloxicam 15 mg tablet 15 mg PO DAILY Qty: 90 0RF valacyclovir [Valtrex] 1 gram tablet 1,000 mg PO TID Qty: 21 0RF diphenhydramine HCl 25 mg capsule 25 mg PO TID PRN (Reason: allergic reaction) Qty: 14 0RF simvastatin 10 mg tablet 10 mg PO HS ibuprofen 600 mg tablet 600 mg PO TID PRN (Reason: pain) Qty: 20 0RF guaifenesin [Mucinex] 1,200 mg tablet extended release 12hr 1,200 mg PO Q12H Qty: 20 0RF blood sugar diagnostic [OneTouch Ultra Blue Test Strip] Strip See Rx Instructions .ROUTE .COMPLEX Qty: 200 3RF Dose Instruction: TEST TWO TIMES DAILY Rx Instructions: TEST TWO TIMES DAILY benzonatate 200 mg capsule 200 mg PO BID PRN (Reason: cough) Qty: 20 0RF benzonatate 200 mg capsule 200 mg PO BID PRN (Reason: cough) Qty: 60 0RF metformin 500 mg tablet See Rx Instructions .ROUTE .COMPLEX Qty: 180 2RF Dose Instruction: TAKE 1 TABLET BY MOUTH TWICE DAILY WITH BREAKFAST AND WITH SUPPER Rx Instructions: TAKE 1 TABLET BY MOUTH TWICE DAILY WITH BREAKFAST AND WITH SUPPER levothyroxine 25 mcg tablet See Rx Instructions .ROUTE .COMPLEX Qty: 90 2RF Dose Instruction: Take 1 tablet by mouth once daily Rx Instructions: Take 1 tablet by mouth once daily Follow-up/Referrals: Paulo Mueller MD [Physician] - Jacy Hansen APRN [Primary Care Provider] -
[2025-03-19] MEDS: ACETAMINOPHEN 325 MG TABLET 650 MG PO (16:07)
[2025-03-19] MEDS: HYDROcodone/acetaminophen (*CRX) 5-325 MG TABLET 1 TAB PO (17:06)
== END 2025-03-19 17:42 | disposition home or self-care (01) ==
PROVIDERS: Emergency Provider Physician Assistant; PCP Nurse Practitioner Adult Health
DX: S69.91XA Unspecified injury of right wrist, hand and finger(s), initial encounter (principal); S09.90XA Unspecified injury of head, initial encounter; E11.69 Type 2 diabetes mellitus with other specified complication; E78.2 Mixed hyperlipidemia; Z85.3 Personal history of malignant neoplasm of breast; H35.30 Unspecified macular degeneration; E03.9 Hypothyroidism, unspecified; E55.9 Vitamin D deficiency, unspecified; M17.12 Unilateral primary osteoarthritis, left knee; Z87.891 Personal history of nicotine dependence; Z96.1 Presence of intraocular lens; Z98.42 Cataract extraction status, left eye; Z98.41 Cataract extraction status, right eye; Z90.11 Acquired absence of right breast and nipple; Z79.84 Long term (current) use of oral hypoglycemic drugs; Z79.899 Other long term (current) drug therapy; Z79.85 Long-term (current) use of injectable non-insulin antidiabetic drugs; W18.39XA Other fall on same level, initial encounter; Y93.K1 Activity, walking an animal
CPT/HCPCS: 70450; 72125; 73110; 73130; 99284; A9270